=== PATIENT | male | born 1945 | race Caucasian/White ===

== ENCOUNTER → 2016-05-30 | Day surgery (SDC) | payer OTHER ==
[~2016-05-30] VITALS: Ht 188 cm; Wt 136.1 kg
[~2016-05-30] MED LIST: ALLOPURINOL300 MG PO; AMLODIPINE BESYL5 MG PO; ANALGESIC325 M1 PO; ASPIR 8181 M1 PO; ASPIRIN325 MG PO; ATORVASTATIN CA10 MG PO; AVELOX400 MG; AZITHROMYCIN250 MG; BEE WITH C1 EACH; CALCIUM ACETAT667 MG PO; CALCIUM ACETAT668 MG PO; CARVEDILOL3.125 MG PO; CHERATUSSIN AC473 ML; COLCHICINE0.6 MG PO; DILAUDID2 MG PO; DOXAZOSIN MESYLA2 MG; DOXAZOSIN MESYLA2 MG PO; ENDOCET 10-3251 EACH; ENDOCET 5-3251 EACH PO; FISH OIL SOFTG1 EACH PO; GABAPENTIN100 MG PO; GABAPENTIN300 MG PO; HUMULIN 70100 UNIT/2 SC; HUMULIN 70100 UNIT/2 SQ; LOVASTATIN40 MG PO; METOPROLOL SUCC25 MG PO; NEURONTIN100 MG PO; NITROSTAT0.4 MG SL; NOVOLIN 70100 UNIT/2 SQ; NOVOLOG MI100 UNIT/M SQ; NOVOLOG100 UNIT/2; OMEPRAZOLE20 M1 PO; OXYCODONE-APAP1 EACH; PERCOCET 10/1 TABLET PO; PRILOSEC20 MG PO; RENVELA0.8 GM; RENVELA800 MG PO; SENNA-TIME S T1 EACH PO; VITAMIN D2000 UNIT; VITAMIN D2000 UNIT PO; ZEMPLAR1 MCG PO
[2016-05-30 12:38] LABS: POINT-OF-CARE METER ID UU13113696
[2016-05-30 13:47] LABS: METH RESISTANT S AUREUS PCR NEGATIVE (NEGATIVE)
[2016-05-30 13:51] LABS: PROBE CHECK PASS; SPECIMEN PROCESSING CONTROL PASS
== END | disposition home or self-care (01) ==
LOC: CATH 11:43
PROVIDERS: Surgery
DX: T82.858A Stenosis of other vascular prosthetic devices, implants and grafts, initial encounter (principal); Y83.2 Surgical operation with anastomosis, bypass or graft as the cause of abnormal reaction of the patient, or of later complication, without mention of misadventure at the time of the procedure; Z99.2 Dependence on renal dialysis; I12.0 Hypertensive chronic kidney disease with stage 5 chronic kidney disease or end stage renal disease; N18.6 End stage renal disease; E78.5 Hyperlipidemia, unspecified
CPT/HCPCS: 82948; 87641; C1725; C1769; C1894; J1644; J2250; J3010

== ENCOUNTER 2016-06-12 23:54 | Inpatient (IN) | payer OTHER ==
[~2016-06-12] VITALS: Ht 188 cm; Wt 130.0 kg
[2016-06-13 00:27] LABS: HEMATOCRIT 34.2 % (38.0-50.0); MCH 31.8 PG (29.0-34.0); MCHC 34.5 G/DL (30.0-36.0); MCV 92.2 FL (86-99); MEAN PLAT.VOLUME 8.9 uM^3 (9.0-12.4); PLATELET COUNT 119 K/uL (156-360); RBC DIS.WIDTH-CV 13.7 % (11.8-14.6); RBC DIS.WIDTH-SD 44.7 % (39-53); RED BLOOD COUNT 3.71 M/uL (4.00-5.50); WHITE BLOOD COUNT 8.8 K/uL (4.1-10.2)
[2016-06-13 00:40] LABS: CHLORIDE 94 mEq/L (99-109); POTASSIUM 3.5 mEq/L (3.7-5.4); SODIUM 139 mEq/L (136-147)
[2016-06-13 00:42] LABS: GLUCOSE 173 mg/dL (70-99)
[2016-06-13 00:43] LABS: ANION GAP 13 MEQ/L (2-14)
[2016-06-13 00:45] LABS: GFR ESTIMATE (CALCULATED) 6 mL/min/
[2016-06-13 00:46] LABS: UREA NITROGEN (BUN) 50 mg/dL (9-23)
[2016-06-13 01:25] LABS: INTER. NORMALIZED RATIO 1.1; PROTHROMBIN TIME 10.7 (9.2-11.2); PTT 30.6 (25-32); TOTAL BILIRUBIN 1.2 mg/dL (0.0-1.0)
[2016-06-13 01:26] LABS: ALKALINE PHOSPHATASE 56 IU/L (3-129)
[2016-06-13 01:29] LABS: DIRECT BILIRUBIN 0.4 mg/dL (0.0-0.3)
[2016-06-13 01:30] LABS: LIPASE 19 U/L (1.0-51.0)
[2016-06-13 01:33] LABS: TROP-I INTERPRETATION NEGATIVE; TROPONIN-I 0.05 ng/mL (0.0-0.30)
[2016-06-13] MEDS ORDERED: NOVOLOG MI100 UNIT/4 SC (01:56)
[2016-06-13 05:30] VITALS: BP 158/64
[2016-06-13 07:16] LABS: POINT-OF-CARE METER ID UU14188577
[2016-06-13 07:17] LABS: HEMATOCRIT 33.2 % (38.0-50.0); MCH 31.8 PG (29.0-34.0); MCHC 34.3 G/DL (30.0-36.0); MCV 92.7 FL (86-99); MEAN PLAT.VOLUME 9.5 uM^3 (9.0-12.4); PLATELET COUNT 90 K/uL (156-360); RBC DIS.WIDTH-CV 13.8 % (11.8-14.6); RBC DIS.WIDTH-SD 46.4 % (39-53); RED BLOOD COUNT 3.58 M/uL (4.00-5.50)
[2016-06-13 07:46] LABS: ALKALINE PHOSPHATASE 42 IU/L (3-129); ANION GAP 10 MEQ/L (2-14); CHLORIDE 94 MEQ/L (99-109); GFR ESTIMATE (CALCULATED) 6 mL/min/; GLUCOSE 185 mg/dL (70-99); POTASSIUM 3.4 MEQ/L (3.7-5.4); SAMPLE HEMOLYSIS CHECK 0; SAMPLE ICTERIC CHECK 0; SAMPLE LIPEMIA CHECK 0; SODIUM 138 MEQ/L (136-147); TOTAL BILIRUBIN 0.9 MG/DL (0.0-1.0); UREA NITROGEN (BUN) 49 mg/dL (9-23)
[2016-06-13 08:23] VITALS: BP 143/67
[2016-06-13 08:32] LABS: MAGNESIUM 2.1 mg/dl (1.3-2.7)
[2016-06-13 16:10] LABS: POINT-OF-CARE METER ID UU14149397
[2016-06-13 16:26] LABS: INTERNAL CONTROL VALID? YES
[2016-06-13 16:30] VITALS: BP 148/66
[2016-06-13 17:02] LABS: C DIFF TOXIN NEGATIVE (NEGATIVE)
[2016-06-13 17:04] LABS: PROBE CHECK PASS; SPECIMEN PROCESSING CONTROL PASS
[2016-06-14 00:38] VITALS: BP 138/74
[2016-06-14 04:00] VITALS: BP 147/65
[2016-06-14 05:49] LABS: HEMATOCRIT 32.1 % (38.0-50.0); MCHC 34.3 G/DL (30.0-36.0); MCV 93.3 FL (86-99); MEAN PLAT.VOLUME 9.7 uM^3 (9.0-12.4); PLATELET COUNT 99 K/uL (156-360); RBC DIS.WIDTH-CV 13.8 % (11.8-14.6); RBC DIS.WIDTH-SD 47.3 % (39-53); RED BLOOD COUNT 3.44 M/uL (4.00-5.50); WHITE BLOOD COUNT 5.9 K/uL (4.1-10.2)
[2016-06-14 06:15] LABS: ANION GAP 11 MEQ/L (2-14); CHLORIDE 95 MEQ/L (99-109); GLUCOSE 277 mg/dL (70-99); SAMPLE HEMOLYSIS CHECK 0; SAMPLE ICTERIC CHECK 0; SAMPLE LIPEMIA CHECK 0; SODIUM 137 MEQ/L (136-147); UREA NITROGEN (BUN) 30 mg/dL (9-23)
[2016-06-14 06:26] LABS: GFR ESTIMATE (CALCULATED) 9 mL/min/; POTASSIUM 4.1 MEQ/L (3.7-5.4)
[2016-06-14 06:30] LABS: POINT-OF-CARE METER ID UU14188577
[2016-06-14 07:41] VITALS: BP 151/79
[2016-06-14] MEDS ORDERED: FLAGYL500 MG PO (09:28)
[2016-06-14] MEDS ORDERED: CIPRO500 MG PO (09:28)
[2016-06-15 10:44] LABS: HBSG INDEX 0.14
== END 2016-06-14 11:36 | disposition home or self-care (01) | DRG 377 ==
LOC: EME 23:54 → EDOF 06-13 02:16 → 3EAST 06-13 04:28
PROVIDERS: Emergency Medicine; Internal Medicine; Nurse Practitioner Adult Health
PROC: 5A1D00Z (ICD-10-PCS; principal; 2016-06-13)
DX: K57.33 Diverticulitis of large intestine without perforation or abscess with bleeding (principal); K52.9 Noninfective gastroenteritis and colitis, unspecified; I12.0 Hypertensive chronic kidney disease with stage 5 chronic kidney disease or end stage renal disease; E11.22 Type 2 diabetes mellitus with diabetic chronic kidney disease; N18.6 End stage renal disease; Z99.2 Dependence on renal dialysis; N25.81 Secondary hyperparathyroidism of renal origin; J90 Pleural effusion, not elsewhere classified; Z99.81 Dependence on supplemental oxygen; J44.9 Chronic obstructive pulmonary disease, unspecified; E87.70 Fluid overload, unspecified; E87.6 Hypokalemia; L89.320 Pressure ulcer of left buttock, unstageable; S81.801A Unspecified open wound, right lower leg, initial encounter; W01.118A Fall on same level from slipping, tripping and stumbling with subsequent striking against other sharp object, initial encounter; Y92.019 Unspecified place in single-family (private) house as the place of occurrence of the external cause; I73.9 Peripheral vascular disease, unspecified; Z91.81 History of falling; Z95.1 Presence of aortocoronary bypass graft; Z95.5 Presence of coronary angioplasty implant and graft; Z79.4 Long term (current) use of insulin; M19.90 Unspecified osteoarthritis, unspecified site; E66.01 Morbid (severe) obesity due to excess calories; R26.2 Difficulty in walking, not elsewhere classified; I87.8 Other specified disorders of veins; Z87.891 Personal history of nicotine dependence; K21.9 Gastro-esophageal reflux disease without esophagitis; Z68.36 Body mass index [BMI] 36.0-36.9, adult; D63.1 Anemia in chronic kidney disease; D50.9 Iron deficiency anemia, unspecified; I87.2 Venous insufficiency (chronic) (peripheral); Z96.653 Presence of artificial knee joint, bilateral; I25.10 Atherosclerotic heart disease of native coronary artery without angina pectoris
CPT/HCPCS: 71010; 74176; 80048; 80053; 80076; 82948; 83630; 83690; 83735; 84484; 85027; 85610; 85730; 86850; 86900; 86901; 87177; 87340; 87493; 87506; 93005; 94799; 99281; 99285; J0295; J0744; J1270; J1644; J1815; J7050; S0030

== ENCOUNTER 2016-09-14 22:12 | Inpatient (IN) | payer OTHER ==
[~2016-09-14] VITALS: Ht 188 cm; Wt 147.8 kg
[~2016-09-14 22:12] MED LIST changes: +CIPRO500 MG PO; +FLAGYL500 MG PO; +NOVOLOG MI100 UNIT/4 SC
[2016-09-14 23:46] LABS: HEMATOCRIT 42.3 % (38.0-50.0); MCH 30.9 PG (29.0-34.0); MCHC 31.4 G/DL (30.0-36.0); MCV 98.4 FL (86-99); MEAN PLAT.VOLUME 9.1 uM^3 (9.0-12.4); PLATELET COUNT 83 K/uL (156-360); RBC DIS.WIDTH-CV 13.2 % (11.8-14.6); RBC DIS.WIDTH-SD 46.5 % (39-53); WHITE BLOOD COUNT 7.2 K/uL (4.1-10.2)
[2016-09-14 23:55] LABS: CHLORIDE 95 mEq/L (99-109); POTASSIUM 5.7 mEq/L (3.7-5.4); PROTHROMBIN TIME 10.3 (9.2-11.2); PTT 28.1 (25-32); SODIUM 137 mEq/L (136-147)
[2016-09-14 23:57] LABS: GLUCOSE 289 mg/dL (70-99)
[2016-09-14 23:58] LABS: ANION GAP 12 MEQ/L (2-14)
[2016-09-14 23:59] LABS: TOTAL BILIRUBIN 0.8 mg/dL (0.0-1.0)
[2016-09-15 00:01] LABS: ALKALINE PHOSPHATASE 58 IU/L (3-129); GFR ESTIMATE (CALCULATED) 6 mL/min/
[2016-09-15 00:02] LABS: UREA NITROGEN (BUN) 48 mg/dL (9-23)
[2016-09-15 00:06] LABS: TROP-I INTERPRETATION NEGATIVE; TROPONIN-I 0.03 ng/mL (0.0-0.30)
[2016-09-15 04:45] VITALS: BP 163/73
[2016-09-15 04:58] VITALS: BP 163/73
[2016-09-15 07:13] VITALS: BP 140/76
[2016-09-15 11:22] VITALS: BP 140/63
[2016-09-15 11:39] LABS: POINT-OF-CARE METER ID UU14149397
[2016-09-15 12:34] LABS: EOSINOPHIL (%) 1.8 % (0-5); EOSINOPHIL COUNT 0.1 K/uL (0-0.3); HEMATOCRIT 37.4 % (38.0-50.0); IMMATURE GRANULOCYTE (%) 0.6 % (0.0-0.7); INSTRUMENT ABS NEUTROPHIL CT 5.7 K/uL; LYMPHOCYTE COUNT 0.6 K/uL (1.0-2.8); MCH 32.1 PG (29.0-34.0); MCHC 32.6 G/DL (30.0-36.0); MCV 98.4 FL (86-99); MEAN PLAT.VOLUME 9.4 uM^3 (9.0-12.4); MONOCYTE (%) 5.4 % (3-12); MONOCYTE COUNT 0.4 K/uL (0-0.8); NEUTROPHIL (%) 82.6 % (45-76); NEUTROPHIL COUNT 5.7 K/uL (1.8-6.4); PLATELET COUNT 68 K/uL (156-360); RBC DIS.WIDTH-CV 13.2 % (11.8-14.6); RBC DIS.WIDTH-SD 47.4 % (39-53); WHITE BLOOD COUNT 6.9 K/uL (4.1-10.2)
[2016-09-15 13:23] LABS: ANION GAP 9 MEQ/L (2-14); CHLORIDE 93 MEQ/L (99-109); GFR ESTIMATE (CALCULATED) 6 mL/min/; GLUCOSE 278 mg/dL (70-99); SAMPLE HEMOLYSIS CHECK 0; SAMPLE ICTERIC CHECK 0; SAMPLE LIPEMIA CHECK 0; SODIUM 134 MEQ/L (136-147); UREA NITROGEN (BUN) 53 mg/dL (9-23)
[2016-09-15] MEDS ORDERED: STOOL SOFTENER240 MG PO (18:40)
[2016-09-15 20:06] VITALS: BP 140/65
[2016-09-15 22:36] LABS: POINT-OF-CARE METER ID UU14149397
[2016-09-16 00:31] VITALS: BP 148/64
[2016-09-16 03:39] VITALS: BP 135/63
[2016-09-16 06:42] LABS: POINT-OF-CARE METER ID UU14149397
[2016-09-16 06:42] LABS: HEMATOCRIT 36.1 % (38.0-50.0); MCH 31.8 PG (29.0-34.0); MCHC 32.4 G/DL (30.0-36.0); MCV 98.1 FL (86-99); MEAN PLAT.VOLUME 9.8 uM^3 (9.0-12.4); PLATELET COUNT 73 K/uL (156-360); RBC DIS.WIDTH-CV 12.9 % (11.8-14.6); RBC DIS.WIDTH-SD 46.5 % (39-53); RED BLOOD COUNT 3.68 M/uL (4.00-5.50)
[2016-09-16 07:17] LABS: INTERNAL CONTROL VALID? YES
[2016-09-16 07:52] LABS: ANION GAP 8 MEQ/L (2-14); CHLORIDE 94 MEQ/L (99-109); GFR ESTIMATE (CALCULATED) 8 mL/min/; GLUCOSE 237 mg/dL (70-99); POTASSIUM 4.8 MEQ/L (3.7-5.4); SAMPLE HEMOLYSIS CHECK 0; SAMPLE ICTERIC CHECK 0; SAMPLE LIPEMIA CHECK 0; SODIUM 137 MEQ/L (136-147); UREA NITROGEN (BUN) 29 mg/dL (9-23)
[2016-09-16 08:15] VITALS: BP 147/67
[2016-09-16 11:47] LABS: AHBS INDEX 0.43; HEPATITIS B SURFACE ANTIBODY Nonreactive
[2016-09-16 11:59] VITALS: BP 139/75
[2016-09-16 12:05] LABS: POINT-OF-CARE METER ID UU14149397
[2016-09-16 16:08] VITALS: BP 165/77
[2016-09-16 19:41] VITALS: BP 195/81
[2016-09-16 21:23] LABS: POINT-OF-CARE METER ID UU14149397
[2016-09-17] VITALS: BP 170/77
[2016-09-17 06:25] LABS: POINT-OF-CARE METER ID UU14188577
[2016-09-17 06:44] LABS: HEMATOCRIT 36.5 % (38.0-50.0); MCH 31.8 PG (29.0-34.0); MCHC 32.9 G/DL (30.0-36.0); MCV 96.8 FL (86-99); PLATELET COUNT 84 K/uL (156-360); RBC DIS.WIDTH-CV 13.2 % (11.8-14.6); RBC DIS.WIDTH-SD 46.2 % (39-53); RED BLOOD COUNT 3.77 M/uL (4.00-5.50); WHITE BLOOD COUNT 5.5 K/uL (4.1-10.2)
[2016-09-17 07:18] LABS: ANION GAP 10 MEQ/L (2-14); CHLORIDE 92 MEQ/L (99-109); GLUCOSE 258 mg/dL (70-99); POTASSIUM 5.5 MEQ/L (3.7-5.4); SAMPLE HEMOLYSIS CHECK 0; SAMPLE ICTERIC CHECK 0; SAMPLE LIPEMIA CHECK 0; SODIUM 137 MEQ/L (136-147); UREA NITROGEN (BUN) 38 mg/dL (9-23)
[2016-09-17 07:19] LABS: GFR ESTIMATE (CALCULATED) 6 mL/min/
[2016-09-17 08:00] VITALS: BP 163/75
[2016-09-17 11:55] LABS: POINT-OF-CARE METER ID UU14149397
[2016-09-17 12:08] VITALS: BP 155/71
[2016-09-17 13:28] LABS: Estimated Average Glucose 192 mg/dL (70-123); HEMOGLOBIN A1c (GLYCOHEMOGLOB) 8.3 % HGB (Below 5.7)
[2016-09-17] MEDS ORDERED: DUONEB 2.5-0.5 M3 ML AEROSOL (13:55)
[2016-09-17 16:35] VITALS: BP 159/70
[2016-09-17 18:04] LABS: POINT-OF-CARE METER ID UU14149397
[2016-09-17 18:33] LABS: ANION GAP 7 MEQ/L (2-14); CHLORIDE 92 MEQ/L (99-109); SAMPLE HEMOLYSIS CHECK 0; SAMPLE ICTERIC CHECK 0; SAMPLE LIPEMIA CHECK 0; SODIUM 135 MEQ/L (136-147)
[2016-09-17 18:34] LABS: POTASSIUM 4.2 MEQ/L (3.7-5.4)
[2016-09-17 19:24] LABS: GFR ESTIMATE (CALCULATED) 13 mL/min/; GLUCOSE 216 mg/dL (70-99)
[2016-09-17 19:28] LABS: UREA NITROGEN (BUN) 18 mg/dL (9-23)
== END 2016-09-17 19:42 | disposition home health service (06) | DRG 193 ==
LOC: EME → EDBD 22:12 → EDOF 09-15 03:54 → 3EAST 09-15 03:54
PROVIDERS: Emergency Medicine; Internal Medicine; Internal Medicine Nephrology; Physician Assistant
PROC: 5A1D60Z (ICD-10-PCS; principal; 2016-09-15)
DX: J18.9 Pneumonia, unspecified organism (principal); I12.0 Hypertensive chronic kidney disease with stage 5 chronic kidney disease or end stage renal disease; E87.70 Fluid overload, unspecified; J81.1 Chronic pulmonary edema; N18.6 End stage renal disease; D63.1 Anemia in chronic kidney disease; R06.00 Dyspnea, unspecified; J44.9 Chronic obstructive pulmonary disease, unspecified; E78.5 Hyperlipidemia, unspecified; K21.9 Gastro-esophageal reflux disease without esophagitis; I25.10 Atherosclerotic heart disease of native coronary artery without angina pectoris; K57.30 Diverticulosis of large intestine without perforation or abscess without bleeding; F32.9 Major depressive disorder, single episode, unspecified; F41.9 Anxiety disorder, unspecified; I73.9 Peripheral vascular disease, unspecified; I87.8 Other specified disorders of veins; M19.90 Unspecified osteoarthritis, unspecified site; E83.39 Other disorders of phosphorus metabolism; E66.01 Morbid (severe) obesity due to excess calories; Z68.41 Body mass index [BMI] 40.0-44.9, adult; Z99.2 Dependence on renal dialysis; Z79.4 Long term (current) use of insulin; Z95.1 Presence of aortocoronary bypass graft; Z99.81 Dependence on supplemental oxygen; Z90.49 Acquired absence of other specified parts of digestive tract; Z87.891 Personal history of nicotine dependence; Z86.73 Personal history of transient ischemic attack (TIA), and cerebral infarction without residual deficits; Z96.653 Presence of artificial knee joint, bilateral; Z90.5 Acquired absence of kidney
CPT/HCPCS: 71101; 71250; 80048; 80048 91; 80053; 80069; 81003; 82948; 83036; 83605; 84484; 85025; 85027; 85610; 85730; 86706; 87070; 87205; 87340; 87449; 93005; 94010; 94640; 94640 76; 94799; 99202; 99281; 99285; J0456; J0696; J1644; J1815; J7050; J7644

== ENCOUNTER 2016-12-25 14:32 | Emergency (ER) | payer OTHER ==
[~2016-12-25] VITALS: Ht 188 cm; Wt 142.7 kg
[~2016-12-25 14:32] MED LIST changes: +DUONEB 2.5-0.5 M3 ML AEROSOL; +STOOL SOFTENER240 MG PO
[2016-12-25 15:59] LABS: HEMATOCRIT 37.1 % (38.0-50.0); MCH 32.3 PG (29.0-34.0); MCHC 33.4 G/DL (30.0-36.0); MCV 96.6 FL (86-99); MEAN PLAT.VOLUME 9.2 uM^3 (9.0-12.4); PLATELET COUNT 79 K/uL (156-360); RBC DIS.WIDTH-SD 46.8 % (39-53); RED BLOOD COUNT 3.84 M/uL (4.00-5.50); WHITE BLOOD COUNT 8.6 K/uL (4.1-10.2)
[2016-12-25 16:09] LABS: CHLORIDE 92 mEq/L (99-109); POTASSIUM 4.4 mEq/L (3.7-5.4); SODIUM 138 mEq/L (136-147)
[2016-12-25 16:12] LABS: GLUCOSE 143 mg/dL (70-99)
[2016-12-25 16:13] LABS: ANION GAP 13 MEQ/L (2-14)
[2016-12-25 16:14] LABS: TOTAL BILIRUBIN 0.8 mg/dL (0.0-1.0)
[2016-12-25 16:15] LABS: ALKALINE PHOSPHATASE 56 IU/L (3-129)
[2016-12-25 16:16] LABS: GFR ESTIMATE (CALCULATED) 6 mL/min/
[2016-12-25 16:17] LABS: UREA NITROGEN (BUN) 44 mg/dL (9-23)
[2016-12-25] MEDS ORDERED: CIPRO500 MG PO (19:42)
[2016-12-25] MEDS ORDERED: FLAGYL500 MG PO (19:42)
[2016-12-25 20:02] VITALS: BP 121/69
== END 2016-12-25 20:04 | disposition home or self-care (01) ==
LOC: EME 14:32
DX: K52.9 Noninfective gastroenteritis and colitis, unspecified (principal); I12.0 Hypertensive chronic kidney disease with stage 5 chronic kidney disease or end stage renal disease; E11.22 Type 2 diabetes mellitus with diabetic chronic kidney disease; N18.6 End stage renal disease; Z99.2 Dependence on renal dialysis; Z79.4 Long term (current) use of insulin; K57.30 Diverticulosis of large intestine without perforation or abscess without bleeding; Z90.5 Acquired absence of kidney; Z90.49 Acquired absence of other specified parts of digestive tract; E78.5 Hyperlipidemia, unspecified; Z95.1 Presence of aortocoronary bypass graft; Z95.5 Presence of coronary angioplasty implant and graft; Z87.442 Personal history of urinary calculi; Z79.82 Long term (current) use of aspirin; Z85.828 Personal history of other malignant neoplasm of skin; Z99.81 Dependence on supplemental oxygen; Z87.891 Personal history of nicotine dependence
CPT/HCPCS: 74176; 80053; 81003; 83605; 85027; 99281; 99285

== ENCOUNTER 2016-12-30 03:56 | Inpatient (IN) | payer OTHER ==
[~2016-12-30] VITALS: Ht 188 cm; Wt 144.1 kg
[2016-12-30 04:44] LABS: EOSINOPHIL (%) 6.7 % (0-5); EOSINOPHIL COUNT 0.5 K/uL (0-0.3); HEMATOCRIT 33.9 % (38.0-50.0); IMMATURE GRANULOCYTE (%) 0.4 % (0.0-0.7); INSTRUMENT ABS NEUTROPHIL CT 4.9 K/uL; LYMPHOCYTE COUNT 0.8 K/uL (1.0-2.8); MCH 32.2 PG (29.0-34.0); MCV 97.4 FL (86-99); MEAN PLAT.VOLUME 8.9 uM^3 (9.0-12.4); MONOCYTE (%) 8.9 % (3-12); MONOCYTE COUNT 0.6 K/uL (0-0.8); NEUTROPHIL (%) 72.2 % (45-76); NEUTROPHIL COUNT 4.9 K/uL (1.8-6.4); PLATELET COUNT 93 K/uL (156-360); RBC DIS.WIDTH-SD 46.4 % (39-53); RED BLOOD COUNT 3.48 M/uL (4.00-5.50); WHITE BLOOD COUNT 6.7 K/uL (4.1-10.2)
[2016-12-30 04:55] LABS: CHLORIDE 88 mEq/L (99-109); SODIUM 136 mEq/L (136-147)
[2016-12-30 04:58] LABS: ANION GAP 11 MEQ/L (2-14); POTASSIUM 3.5 mEq/L (3.7-5.4)
[2016-12-30 04:59] LABS: TOTAL BILIRUBIN 0.4 mg/dL (0.0-1.0)
[2016-12-30 05:00] LABS: ALKALINE PHOSPHATASE 52 IU/L (3-129)
[2016-12-30 05:01] LABS: GFR ESTIMATE (CALCULATED) 9 mL/min/
[2016-12-30 05:02] LABS: UREA NITROGEN (BUN) 17 mg/dL (9-23)
[2016-12-30 05:04] LABS: GLUCOSE 453 mg/dL (70-99); LIPASE 81 U/L (1.0-51.0)
[2016-12-30 07:58] LABS: POINT-OF-CARE METER ID UU13113747
[2016-12-30 10:45] VITALS: BP 174/77
[2016-12-30 12:44] LABS: POINT-OF-CARE METER ID UU14162508
[2016-12-30 15:34] VITALS: BP 141/61
[2016-12-30 16:37] LABS: POINT-OF-CARE METER ID UU14162508; POINT-OF-CARE USER ID PUTDRM
[2016-12-30 20:57] VITALS: BP 141/63
[2016-12-30 21:47] LABS: POINT-OF-CARE METER ID UU14208750
[2016-12-31 01:23] VITALS: BP 101/51
[2016-12-31 02:03] LABS: C DIFF TOXIN NEGATIVE (NEGATIVE)
[2016-12-31 02:04] LABS: PROBE CHECK PASS; SPECIMEN PROCESSING CONTROL PASS
[2016-12-31 04:01] VITALS: BP 103/52
[2016-12-31 06:21] LABS: POINT-OF-CARE METER ID UU14208750
[2016-12-31 06:59] LABS: HEMATOCRIT 34.1 % (38.0-50.0); MCH 32.3 PG (29.0-34.0); MCHC 33.1 G/DL (30.0-36.0); MCV 97.4 FL (86-99); MEAN PLAT.VOLUME 8.7 uM^3 (9.0-12.4); PLATELET COUNT 94 K/uL (156-360); RBC DIS.WIDTH-CV 13.1 % (11.8-14.6); RBC DIS.WIDTH-SD 46.8 % (39-53); WHITE BLOOD COUNT 8.6 K/uL (4.1-10.2)
[2016-12-31 07:21] LABS: ANION GAP 10 MEQ/L (2-14); CHLORIDE 91 MEQ/L (99-109); GFR ESTIMATE (CALCULATED) 8 mL/min/; POTASSIUM 3.4 MEQ/L (3.7-5.4); SAMPLE HEMOLYSIS CHECK 0; SAMPLE ICTERIC CHECK 0; SAMPLE LIPEMIA CHECK 0; SODIUM 136 MEQ/L (136-147); UREA NITROGEN (BUN) 18 mg/dL (9-23)
[2016-12-31 07:23] LABS: GLUCOSE 156 mg/dL (70-99)
[2016-12-31 11:53] VITALS: BP 108/64
[2016-12-31 13:33] LABS: POINT-OF-CARE METER ID UU14162508
[2016-12-31 15:15] VITALS: BP 112/70
[2016-12-31 17:36] LABS: POINT-OF-CARE METER ID UU14208750
[2016-12-31 19:56] VITALS: BP 123/65
[2016-12-31 22:01] LABS: POINT-OF-CARE METER ID UU14162508
[2016-12-31 22:30] VITALS: BP 119/59
[2017-01-01 00:44] VITALS: BP 135/58
[2017-01-01 04:28] VITALS: BP 132/53
[2017-01-01 06:12] LABS: POINT-OF-CARE METER ID UU14208750
[2017-01-01 07:05] VITALS: BP 125/83
[2017-01-01] MEDS ORDERED: FLAGYL500 MG PO (09:40)
[2017-01-01] MEDS ORDERED: CIPRO500 MG PO (09:40)
== END 2017-01-01 11:25 | disposition home health service (06) | DRG 391 ==
LOC: EME 03:56 → 2EASTP 08:16 → EDOF 08:16 → ENRESERV 08:23 → 2EASTP 10:28
PROVIDERS: Emergency Medicine; Internal Medicine
PROC: 5A1D00Z (ICD-10-PCS; principal; 2016-12-31)
DX: K57.32 Diverticulitis of large intestine without perforation or abscess without bleeding (principal); E86.0 Dehydration; I12.0 Hypertensive chronic kidney disease with stage 5 chronic kidney disease or end stage renal disease; N18.6 End stage renal disease; J44.9 Chronic obstructive pulmonary disease, unspecified; E11.22 Type 2 diabetes mellitus with diabetic chronic kidney disease; N25.81 Secondary hyperparathyroidism of renal origin; E11.65 Type 2 diabetes mellitus with hyperglycemia; E11.40 Type 2 diabetes mellitus with diabetic neuropathy, unspecified; E11.51 Type 2 diabetes mellitus with diabetic peripheral angiopathy without gangrene; D69.6 Thrombocytopenia, unspecified; Z99.81 Dependence on supplemental oxygen; E66.01 Morbid (severe) obesity due to excess calories; Z68.41 Body mass index [BMI] 40.0-44.9, adult; D63.1 Anemia in chronic kidney disease; E78.5 Hyperlipidemia, unspecified; I25.10 Atherosclerotic heart disease of native coronary artery without angina pectoris; K21.9 Gastro-esophageal reflux disease without esophagitis; I87.8 Other specified disorders of veins; M19.90 Unspecified osteoarthritis, unspecified site; Z96.653 Presence of artificial knee joint, bilateral; Z99.2 Dependence on renal dialysis; I25.2 Old myocardial infarction; Z95.1 Presence of aortocoronary bypass graft; Z95.5 Presence of coronary angioplasty implant and graft; Z87.891 Personal history of nicotine dependence; Z90.5 Acquired absence of kidney; Z87.442 Personal history of urinary calculi; Z79.4 Long term (current) use of insulin; Z79.899 Other long term (current) drug therapy; Z80.1 Family history of malignant neoplasm of trachea, bronchus and lung
CPT/HCPCS: 74177; 80048; 80053; 81003; 82948; 83690; 85025; 85027; 87040; 87493; 87506; 94640; 94799; 99202; 99281; 99284; J1270; J1644; J1756; J1815; J2270; J2405; J2543; J3010; J3480; J7030; J7050; S0028; S0030

== ENCOUNTER 2017-01-23 10:00 | Inpatient (IN) | payer OTHER ==
[~2017-01-23] VITALS: Ht 185.4 cm; Wt 137.6 kg
[2017-01-23] VITALS (13 sets, daily range): BP systolic 108–137; BP diastolic 48–72
[~2017-01-23 10:00] MED LIST changes: +NOVOLOG MI100 UNIT/2 SC; -NOVOLOG MI100 UNIT/4 SC
[2017-01-23 10:51] LABS: HEMATOCRIT 34.8 % (38.0-50.0); MCHC 32.5 G/DL (30.0-36.0); MCV 95.6 FL (86-99); MEAN PLAT.VOLUME 9.1 uM^3 (9.0-12.4); PLATELET COUNT 86 K/uL (156-360); RBC DIS.WIDTH-CV 12.6 % (11.8-14.6); RBC DIS.WIDTH-SD 43.9 % (39-53); RED BLOOD COUNT 3.64 M/uL (4.00-5.50)
[2017-01-23 11:00] LABS: CHLORIDE 91 mEq/L (99-109); POTASSIUM 3.7 mEq/L (3.7-5.4); SODIUM 139 mEq/L (136-147)
[2017-01-23 11:02] LABS: GLUCOSE 200 mg/dL (70-99)
[2017-01-23 11:03] LABS: ANION GAP 12 MEQ/L (2-14)
[2017-01-23 11:04] LABS: TOTAL BILIRUBIN 0.8 mg/dL (0.0-1.0)
[2017-01-23 11:06] LABS: ALKALINE PHOSPHATASE 59 IU/L (3-129); GFR ESTIMATE (CALCULATED) 14 mL/min/
[2017-01-23 11:07] LABS: UREA NITROGEN (BUN) 13 mg/dL (9-23)
[2017-01-23 11:11] LABS: TROP-I INTERPRETATION NEGATIVE; TROPONIN-I 0.05 ng/mL (0.0-0.30)
[2017-01-23] MEDS ORDERED: TYLENOL EXTRA500 MG PO (13:37)
[2017-01-23] MEDS ORDERED: RENVELA800 MG PO (13:37)
[2017-01-23] MEDS ORDERED: CALAMINE LOTIO120 ML TP (13:38)
[2017-01-23] MEDS ORDERED: AQUAPHILIC454 GM TP (13:39)
[2017-01-23] MEDS ORDERED: PREPARATION H1 EAC4 PR (13:39)
[2017-01-23] MEDS ORDERED: PREPARATION H O28 GM PR (13:40)
[2017-01-23 14:47] LABS: PROTHROMBIN TIME 11.4 SEC (10.2-12.9)
[2017-01-23 14:49] LABS: PTT 30.5 SEC (25-37)
[2017-01-23 19:25] LABS: HEMATOCRIT 26.2 % (38.0-50.0)
[2017-01-23 21:20] LABS: POINT-OF-CARE METER ID UU13113781
[2017-01-23 23:06] LABS: METH RESISTANT S AUREUS PCR NEGATIVE (NEGATIVE); PROBE CHECK PASS; SPECIMEN PROCESSING CONTROL PASS
[2017-01-24] VITALS (21 sets, daily range): BP systolic 106–167; BP diastolic 44–85
[2017-01-24 02:02] LABS: HEMATOCRIT 26.7 % (38.0-50.0)
[2017-01-24 08:46] LABS: EOSINOPHIL COUNT 0.2 K/uL (0-0.3); HEMATOCRIT 31.6 % (38.0-50.0); IMMATURE GRANULOCYTE (%) 0.8 % (0.0-0.7); IMMATURE GRANULOCYTE COUNT 0.1 K/uL; INSTRUMENT ABS NEUTROPHIL CT 4.5 K/uL; LYMPHOCYTE COUNT 1.1 K/uL (1.0-2.8); MCH 31.3 PG (29.0-34.0); MCHC 33.5 G/DL (30.0-36.0); MCV 93.2 FL (86-99); MEAN PLAT.VOLUME 9.3 uM^3 (9.0-12.4); MONOCYTE (%) 7.3 % (3-12); MONOCYTE COUNT 0.5 K/uL (0-0.8); NEUTROPHIL (%) 71.8 % (45-76); NEUTROPHIL COUNT 4.5 K/uL (1.8-6.4); PLATELET COUNT 95 K/uL (156-360); RBC DIS.WIDTH-CV 13.6 % (11.8-14.6); RED BLOOD COUNT 3.39 M/uL (4.00-5.50); WHITE BLOOD COUNT 6.3 K/uL (4.1-10.2)
[2017-01-24 08:51] LABS: INTER. NORMALIZED RATIO 1.1; PROTHROMBIN TIME 12.1 SEC (10.2-12.9)
[2017-01-24 09:14] LABS: ALKALINE PHOSPHATASE 49 IU/L (3-129); ANION GAP 12 MEQ/L (2-14); CHLORIDE 97 MEQ/L (99-109); GFR ESTIMATE (CALCULATED) 11 mL/min/; GLUCOSE 190 mg/dL (70-99); POTASSIUM 4.4 MEQ/L (3.7-5.4); SAMPLE HEMOLYSIS CHECK 0; SAMPLE ICTERIC CHECK 0; SAMPLE LIPEMIA CHECK 0; SODIUM 143 MEQ/L (136-147); TOTAL BILIRUBIN 1.7 MG/DL (0.0-1.0)
[2017-01-24 09:15] LABS: UREA NITROGEN (BUN) 21 mg/dL (9-23)
[2017-01-24 09:38] LABS: POINT-OF-CARE METER ID UU13113803
[2017-01-24 14:02] LABS: POINT-OF-CARE METER ID UU13113803
[2017-01-24 14:47] LABS: MCV 93.8 FL (86-99)
[2017-01-24 17:59] LABS: POINT-OF-CARE METER ID UU13113803
[2017-01-24 19:55] LABS: HEMATOCRIT 28.9 % (38.0-50.0); MCV 92.3 FL (86-99)
[2017-01-25] VITALS (8 sets, daily range): BP systolic 126–159; BP diastolic 60–84
[2017-01-25 05:33] LABS: EOSINOPHIL (%) 7.6 % (0-5); EOSINOPHIL COUNT 0.4 K/uL (0-0.3); HEMATOCRIT 28.3 % (38.0-50.0); IMMATURE GRANULOCYTE COUNT 0.1 K/uL; INSTRUMENT ABS NEUTROPHIL CT 3.8 K/uL; LYMPHOCYTE COUNT 1.1 K/uL (1.0-2.8); MCH 30.5 PG (29.0-34.0); MCHC 32.9 G/DL (30.0-36.0); MCV 92.8 FL (86-99); MEAN PLAT.VOLUME 9.3 uM^3 (9.0-12.4); MONOCYTE (%) 7.1 % (3-12); MONOCYTE COUNT 0.4 K/uL (0-0.8); NEUTROPHIL (%) 65.4 % (45-76); NEUTROPHIL COUNT 3.8 K/uL (1.8-6.4); PLATELET COUNT 96 K/uL (156-360); RBC DIS.WIDTH-SD 47.3 % (39-53); RED BLOOD COUNT 3.05 M/uL (4.00-5.50); WHITE BLOOD COUNT 5.8 K/uL (4.1-10.2)
[2017-01-25 05:45] LABS: INTER. NORMALIZED RATIO 1.1; PROTHROMBIN TIME 11.9 SEC (10.2-12.9)
[2017-01-25 05:48] LABS: PTT 27.2 SEC (25-37)
[2017-01-25 06:01] LABS: ANION GAP 12 MEQ/L (2-14); CHLORIDE 96 MEQ/L (99-109); GFR ESTIMATE (CALCULATED) 9 mL/min/; GLUCOSE 177 mg/dL (70-99); POTASSIUM 3.6 MEQ/L (3.7-5.4); SAMPLE HEMOLYSIS CHECK 0; SAMPLE ICTERIC CHECK 0; SAMPLE LIPEMIA CHECK 0; SODIUM 140 MEQ/L (136-147); UREA NITROGEN (BUN) 28 mg/dL (9-23)
[2017-01-25 12:29] LABS: POINT-OF-CARE METER ID UU14162636
[2017-01-25 12:38] LABS: HEMATOCRIT 26.7 % (38.0-50.0); MCV 93.4 FL (86-99)
[2017-01-25 17:10] LABS: POINT-OF-CARE METER ID UU13113748
[2017-01-25 18:40] LABS: HEMATOCRIT 27.7 % (38.0-50.0); MCV 93.3 FL (86-99)
[2017-01-26] VITALS: BP 151/70
[2017-01-26 04:00] VITALS: BP 133/64
[2017-01-26 06:55] LABS: POINT-OF-CARE METER ID UU14314082; POINT-OF-CARE USER ID RADDRS44
[2017-01-26 07:00] VITALS: BP 133/64
[2017-01-26 08:54] LABS: EOSINOPHIL (%) 7.7 % (0-5); EOSINOPHIL COUNT 0.4 K/uL (0-0.3); HEMATOCRIT 26.6 % (38.0-50.0); IMMATURE GRANULOCYTE (%) 0.9 % (0.0-0.7); IMMATURE GRANULOCYTE COUNT 0.1 K/uL; INSTRUMENT ABS NEUTROPHIL CT 3.8 K/uL; LYMPHOCYTE COUNT 0.8 K/uL (1.0-2.8); MCH 30.7 PG (29.0-34.0); MCHC 33.1 G/DL (30.0-36.0); MCV 92.7 FL (86-99); MONOCYTE (%) 6.4 % (3-12); MONOCYTE COUNT 0.4 K/uL (0-0.8); NEUTROPHIL (%) 69.5 % (45-76); NEUTROPHIL COUNT 3.8 K/uL (1.8-6.4); PLATELET COUNT 91 K/uL (156-360); RBC DIS.WIDTH-CV 13.4 % (11.8-14.6); RBC DIS.WIDTH-SD 45.1 % (39-53); RED BLOOD COUNT 2.87 M/uL (4.00-5.50); WHITE BLOOD COUNT 5.5 K/uL (4.1-10.2)
[2017-01-26 09:12] LABS: ANION GAP 10 MEQ/L (2-14); CHLORIDE 97 MEQ/L (99-109); POTASSIUM 3.5 MEQ/L (3.7-5.4); SAMPLE HEMOLYSIS CHECK 0; SAMPLE ICTERIC CHECK 0; SAMPLE LIPEMIA CHECK 0; SODIUM 138 MEQ/L (136-147)
[2017-01-26 09:18] LABS: GFR ESTIMATE (CALCULATED) 8 mL/min/; UREA NITROGEN (BUN) 34 mg/dL (9-23)
[2017-01-26 09:19] LABS: GLUCOSE 280 mg/dL (70-99)
[2017-01-26 11:00] LABS: AHBS INDEX 4.12; HBSG INDEX 0.14; HEPATITIS B SURFACE ANTIBODY Nonreactive
[2017-01-26] MEDS ORDERED: PANTOPRAZOLE SO40 MG PO ×2 (12:55→15:50)
[2017-01-26 13:00] VITALS: BP 146/73
[2017-01-26 13:16] LABS: POINT-OF-CARE METER ID UU14314082
== END 2017-01-26 15:53 | disposition home health service (06) | DRG 377 ==
LOC: EME 10:00 → EDOF 13:00 → 4WEST 13:00 → CANRESERV 13:02 → ENRESERV 13:02 → 3EAST 14:24 → ENRESERV 14:54 → 3EAST 15:54 → 4EAST 18:03 → ENRESERV 19:09 → 4WEST 21:22 → ENRESERV 01-25 20:32 → 4WEST 01-26 15:53
PROVIDERS: Emergency Medicine; Internal Medicine; Internal Medicine Critical Care Medicine; Internal Medicine Nephrology; Specialist; Surgery
PROC: 30233N1 Transfusion of Nonautologous Red Blood Cells into Peripheral Vein, Percutaneous Approach (ICD-10-PCS; principal; 2017-01-23)
PROC: 30233R1 Transfusion of Nonautologous Platelets into Peripheral Vein, Percutaneous Approach (ICD-10-PCS; principal; 2017-01-23)
PROC: 5A1D70Z Performance of Urinary Filtration, Intermittent, Less than 6 Hours Per Day (ICD-10-PCS; 2017-01-26)
DX: K57.31 Diverticulosis of large intestine without perforation or abscess with bleeding (principal); D62 Acute posthemorrhagic anemia; I13.2 Hypertensive heart and chronic kidney disease with heart failure and with stage 5 chronic kidney disease, or end stage renal disease; N18.6 End stage renal disease; Z96.653 Presence of artificial knee joint, bilateral; Z99.2 Dependence on renal dialysis; D63.1 Anemia in chronic kidney disease; D69.6 Thrombocytopenia, unspecified; E10.22 Type 1 diabetes mellitus with diabetic chronic kidney disease; E10.51 Type 1 diabetes mellitus with diabetic peripheral angiopathy without gangrene; E66.01 Morbid (severe) obesity due to excess calories; Z68.41 Body mass index [BMI] 40.0-44.9, adult; E78.5 Hyperlipidemia, unspecified; F32.9 Major depressive disorder, single episode, unspecified; F41.9 Anxiety disorder, unspecified; I25.10 Atherosclerotic heart disease of native coronary artery without angina pectoris; I50.9 Heart failure, unspecified; I87.8 Other specified disorders of veins; Z95.5 Presence of coronary angioplasty implant and graft; Z90.5 Acquired absence of kidney; Z95.1 Presence of aortocoronary bypass graft; L89.321 Pressure ulcer of left buttock, stage 1; L89.311 Pressure ulcer of right buttock, stage 1; M19.90 Unspecified osteoarthritis, unspecified site; K21.9 Gastro-esophageal reflux disease without esophagitis; J44.9 Chronic obstructive pulmonary disease, unspecified
CPT/HCPCS: 78278; 80048; 80053; 80069; 82948; 84484; 85014; 85018; 85025; 85027; 85610; 85730; 86706; 86850; 86900; 86901; 86920; 87340; 87641; 93005; 99202; 99281; 99285; A9560; C9113; J0881; J1270; J1815; J7030; P9016; P9035

== ENCOUNTER 2017-02-11 09:56 | Inpatient (IN) | payer OTHER ==
[~2017-02-11] VITALS: Ht 188 cm; Wt 134.7 kg
[~2017-02-11 09:56] MED LIST changes: +AQUAPHILIC454 GM TP; +CALAMINE LOTIO120 ML TP; +PANTOPRAZOLE SO40 MG PO; +PREPARATION H O28 GM PR; +PREPARATION H1 EAC4 PR; +TYLENOL EXTRA500 MG PO
[2017-02-11 10:25] LABS: BASE EXCESS 12.8 mEq/L (-3 to +3); BICARBONATE 38.4 mEq/L (22-26); CARBOXY HGB 2.5 % (0-5); METHEMOGLOBIN 0.5 % (0-1.5); PCO2 54 mm Hg (35-45); PO2 55 mm Hg (80-100); pH 7.46 (7.35-7.45)
[2017-02-11 10:26] LABS: COMMENTS - BLOOD GASES A+C+; DEVICE NC; O2 FLOW 6 L/MIN; SITE RR
[2017-02-11 10:57] LABS: EOSINOPHIL (%) 1.6 % (0-5); EOSINOPHIL COUNT 0.1 K/uL (0-0.3); HEMATOCRIT 32.7 % (38.0-50.0); IMMATURE GRANULOCYTE (%) 0.6 % (0.0-0.7); INSTRUMENT ABS NEUTROPHIL CT 5.2 K/uL; LYMPHOCYTE COUNT 1.2 K/uL (1.0-2.8); MCH 30.9 PG (29.0-34.0); MCHC 31.5 G/DL (30.0-36.0); MCV 98.2 FL (86-99); MEAN PLAT.VOLUME 9.6 uM^3 (9.0-12.4); MONOCYTE (%) 6.1 % (3-12); MONOCYTE COUNT 0.4 K/uL (0-0.8); NEUTROPHIL (%) 74.1 % (45-76); NEUTROPHIL COUNT 5.2 K/uL (1.8-6.4); PLATELET COUNT 122 K/uL (156-360); RBC DIS.WIDTH-CV 13.6 % (11.8-14.6); RBC DIS.WIDTH-SD 48.9 % (39-53); RED BLOOD COUNT 3.33 M/uL (4.00-5.50)
[2017-02-11 11:00] LABS: INTER. NORMALIZED RATIO 1.1; PROTHROMBIN TIME 12.4 SEC (10.2-12.9)
[2017-02-11 11:02] LABS: PTT 31.2 SEC (25-37)
[2017-02-11 11:13] LABS: CHLORIDE 89 mEq/L (99-109); SODIUM 138 mEq/L (136-147)
[2017-02-11 11:15] LABS: GLUCOSE 314 mg/dL (70-99)
[2017-02-11 11:16] LABS: ANION GAP 15 MEQ/L (2-14); TROP-I INTERPRETATION NEGATIVE; TROPONIN-I 0.04 ng/mL (0.0-0.30)
[2017-02-11 11:19] LABS: GFR ESTIMATE (CALCULATED) 8 mL/min/
[2017-02-11 11:20] LABS: UREA NITROGEN (BUN) 19 mg/dL (9-23)
[2017-02-11 17:33] LABS: HEMATOCRIT 31.9 % (38.0-50.0); MCV 96.4 FL (86-99)
[2017-02-11 17:53] LABS: TROP-I INTERPRETATION NEGATIVE; TROPONIN-I 0.05 ng/mL (0.0-0.30)
[2017-02-11 20:00] VITALS: BP 130/48
[2017-02-11 20:13] LABS: HEMATOCRIT 33.4 % (38.0-50.0); MCV 97.9 FL (86-99)
[2017-02-11 20:30] VITALS: BP 128/65
[2017-02-11 20:33] LABS: TROP-I INTERPRETATION NEGATIVE; TROPONIN-I 0.06 ng/mL (0.0-0.30)
[2017-02-11 23:12] LABS: POINT-OF-CARE METER ID UU13113698
[2017-02-12 02:41] VITALS: BP 145/78
[2017-02-12 05:42] LABS: ANION GAP 12 MEQ/L (2-14); CHLORIDE 92 MEQ/L (99-109); GFR ESTIMATE (CALCULATED) 14 mL/min/; GLUCOSE 246 mg/dL (70-99); POTASSIUM 3.8 MEQ/L (3.7-5.4); SAMPLE HEMOLYSIS CHECK 0; SAMPLE ICTERIC CHECK 0; SAMPLE LIPEMIA CHECK 0; SODIUM 135 MEQ/L (136-147); UREA NITROGEN (BUN) 13 mg/dL (9-23)
[2017-02-12 06:29] LABS: INFLUENZA A VIRAL ANTIGEN NEGATIVE; INFLUENZA B VIRAL ANTIGEN NEGATIVE
[2017-02-12 07:57] LABS: HEMATOCRIT 29.5 % (38.0-50.0); MCH 30.8 PG (29.0-34.0); MCHC 31.2 G/DL (30.0-36.0); MCV 98.7 FL (86-99); MEAN PLAT.VOLUME 9.7 uM^3 (9.0-12.4); PLATELET COUNT 104 K/uL (156-360); RBC DIS.WIDTH-CV 13.7 % (11.8-14.6); RBC DIS.WIDTH-SD 49.2 % (39-53); RED BLOOD COUNT 2.99 M/uL (4.00-5.50); WHITE BLOOD COUNT 5.5 K/uL (4.1-10.2)
[2017-02-12 07:59] LABS: POINT-OF-CARE METER ID UU13113698; POINT-OF-CARE USER ID ENVKC36
[2017-02-12 08:09] LABS: ALKALINE PHOSPHATASE 49 IU/L (3-129); TOTAL BILIRUBIN 1.1 MG/DL (0.0-1.0)
[2017-02-12 08:20] VITALS: BP 137/72
[2017-02-12 12:14] VITALS: BP 125/53
[2017-02-12 12:19] LABS: POINT-OF-CARE METER ID UU14314088
[2017-02-12 16:20] VITALS: BP 111/61
[2017-02-12 16:54] LABS: POINT-OF-CARE METER ID UU14314088; POINT-OF-CARE USER ID ENVKC36
[2017-02-12 19:45] VITALS: BP 129/65
[2017-02-12 20:47] LABS: POINT-OF-CARE METER ID UU14174216
[2017-02-13 01:17] LABS: HEMATOCRIT 30.4 % (38.0-50.0); MCV 98.7 FL (86-99)
[2017-02-13 01:26] VITALS: BP 129/69
[2017-02-13 03:32] VITALS: BP 110/70
[2017-02-13 05:52] LABS: HEMATOCRIT 29.7 % (38.0-50.0); MCH 31.6 PG (29.0-34.0); MCHC 31.6 G/DL (30.0-36.0); MEAN PLAT.VOLUME 9.7 uM^3 (9.0-12.4); PLATELET COUNT 109 K/uL (156-360); RBC DIS.WIDTH-CV 13.9 % (11.8-14.6); RBC DIS.WIDTH-SD 50.4 % (39-53); RED BLOOD COUNT 2.97 M/uL (4.00-5.50); WHITE BLOOD COUNT 5.6 K/uL (4.1-10.2)
[2017-02-13 06:20] LABS: ANION GAP 9 MEQ/L (2-14); CHLORIDE 94 MEQ/L (99-109); GFR ESTIMATE (CALCULATED) 10 mL/min/; GLUCOSE 169 mg/dL (70-99); POTASSIUM 3.7 MEQ/L (3.7-5.4); SAMPLE HEMOLYSIS CHECK 0; SAMPLE ICTERIC CHECK 0; SAMPLE LIPEMIA CHECK 0; SODIUM 138 MEQ/L (136-147); UREA NITROGEN (BUN) 17 mg/dL (9-23); VANCOMYCIN, TROUGH 10.8 MCG/ML (10-20)
[2017-02-13 07:36] VITALS: BP 134/63
[2017-02-13 08:05] LABS: POINT-OF-CARE METER ID UU13113781; POINT-OF-CARE USER ID ENVKC36
[2017-02-13] MEDS ORDERED: LEVAQUIN250 MG PO (08:07)
[2017-02-13 12:12] LABS: POINT-OF-CARE METER ID UU13113698; POINT-OF-CARE USER ID ENVKC36
[2017-02-13 12:20] VITALS: BP 131/59
[2017-02-13 13:15] LABS: HEMATOCRIT 33.6 % (38.0-50.0); MCV 98.2 FL (86-99)
[2017-02-13 16:29] LABS: TYPE OF FLUID PLEURAL
[2017-02-13 16:30] VITALS: BP 129/57
[2017-02-13 16:55] LABS: POINT-OF-CARE METER ID UU13113698; POINT-OF-CARE USER ID ENVKC36
[2017-02-13 17:29] LABS: BODY FLUID PROTEIN < 3.0 G/DL
[2017-02-13 17:53] LABS: BODY FLUID EOSINOPHILS 0 % (0-25); BODY FLUID RBC'S 7000 /MM^3 (0-100); BODY FLUID WBC'S 283 /MM^3 (0-500); MONONUCLEAR WBC'S 81 %; POLYNUCLEAR WBC'S 19 % (0-25)
[2017-02-13 20:13] VITALS: BP 107/62
[2017-02-13 21:06] LABS: HEMATOCRIT 30.2 % (38.0-50.0); MCV 99.3 FL (86-99)
[2017-02-13 21:08] LABS: POINT-OF-CARE METER ID UU14174216
[2017-02-14 00:06] VITALS: BP 100/50
[2017-02-14 00:30] LABS: HEMATOCRIT 28.1 % (38.0-50.0); MCV 97.6 FL (86-99)
[2017-02-14 05:38] VITALS: BP 102/60
[2017-02-14 07:01] LABS: HEMATOCRIT 30.2 % (38.0-50.0); MCV 98.1 FL (86-99)
[2017-02-14 07:41] LABS: POINT-OF-CARE METER ID UU13113698
[2017-02-14 08:18] VITALS: BP 123/75
[2017-02-17 20:53] LABS: BODY FLUID PH 8.1 (())
== END 2017-02-14 11:21 | disposition home or self-care (01) | DRG 391 ==
LOC: EME 09:56 → EDOF 11:42 → 4EAST 11:42 → ENRESERV 11:44 → CANRESERV 11:48 → ENRESERV 11:48 → 4EAST 12:06 → ENRESERV 12:07 → 4EAST 19:34 → ENPENDDIS 02-14 11:19 → 4EAST 02-14 11:21
PROVIDERS: Emergency Medicine; Internal Medicine; Radiology Diagnostic Radiology
PROC: 5A1D70Z Performance of Urinary Filtration, Intermittent, Less than 6 Hours Per Day (ICD-10-PCS; principal; 2017-02-11)
DX: K21.9 Gastro-esophageal reflux disease without esophagitis (principal); N18.6 End stage renal disease; J96.21 Acute and chronic respiratory failure with hypoxia; I13.2 Hypertensive heart and chronic kidney disease with heart failure and with stage 5 chronic kidney disease, or end stage renal disease; D69.6 Thrombocytopenia, unspecified; J18.9 Pneumonia, unspecified organism; E78.5 Hyperlipidemia, unspecified; G47.33 Obstructive sleep apnea (adult) (pediatric); E11.22 Type 2 diabetes mellitus with diabetic chronic kidney disease; K92.1 Melena; J98.11 Atelectasis; E66.01 Morbid (severe) obesity due to excess calories; E11.40 Type 2 diabetes mellitus with diabetic neuropathy, unspecified; I25.10 Atherosclerotic heart disease of native coronary artery without angina pectoris; I50.9 Heart failure, unspecified; E11.21 Type 2 diabetes mellitus with diabetic nephropathy; I87.8 Other specified disorders of veins; D63.1 Anemia in chronic kidney disease; I73.9 Peripheral vascular disease, unspecified; F41.9 Anxiety disorder, unspecified; R15.9 Full incontinence of feces; F32.9 Major depressive disorder, single episode, unspecified; L89.159 Pressure ulcer of sacral region, unspecified stage; Z99.2 Dependence on renal dialysis; Z79.4 Long term (current) use of insulin; Z95.5 Presence of coronary angioplasty implant and graft; Z87.442 Personal history of urinary calculi; Z95.1 Presence of aortocoronary bypass graft; Z99.81 Dependence on supplemental oxygen; Z87.891 Personal history of nicotine dependence; Z90.5 Acquired absence of kidney; Z96.653 Presence of artificial knee joint, bilateral; Z68.38 Body mass index [BMI] 38.0-38.9, adult; Z80.1 Family history of malignant neoplasm of trachea, bronchus and lung; Y95 Nosocomial condition
CPT/HCPCS: 36600; 71010; 71020; 71250; 71275; 76942; 80048; 80053; 80069; 80202; 82803; 82948; 83880; 83986 90; 84157; 84484; 85014; 85018; 85025; 85027; 85610; 85730; 86850; 86900; 86901; 87040; 87070; 87075; 87205; 87449; 87502; 88108; 89051; 93005; 93306; 94640; 94640 76; 94760; 94799; 99202; 99281; 99285; C1753; C9113; J0456; J1644; J1756; J1815; J2543; J3370; J7050

== ENCOUNTER 2017-04-10 12:12 | Day surgery (SDC) | payer OTHER ==
[~2017-04-10] VITALS: Ht 188 cm; Wt 128.0 kg
[~2017-04-10 12:12] MED LIST changes: +LEVAQUIN250 MG PO
[2017-04-10 13:13] LABS: POINT-OF-CARE METER ID UU13113696
[2017-04-10 14:18] LABS: METH RESISTANT S AUREUS PCR NEGATIVE (NEGATIVE)
[2017-04-10 14:28] LABS: PROBE CHECK PASS; SPECIMEN PROCESSING CONTROL PASS
== END 2017-04-10 16:12 | disposition home or self-care (01) ==
LOC: CATH 12:12
PROVIDERS: Surgery
DX: T82.858A Stenosis of other vascular prosthetic devices, implants and grafts, initial encounter (principal); I12.0 Hypertensive chronic kidney disease with stage 5 chronic kidney disease or end stage renal disease; N18.6 End stage renal disease; Z99.2 Dependence on renal dialysis; E78.00 Pure hypercholesterolemia, unspecified; Z95.1 Presence of aortocoronary bypass graft; Z87.891 Personal history of nicotine dependence; Z79.82 Long term (current) use of aspirin
CPT/HCPCS: 82948; 87641; C1725; C1769; C1874; C1894; J1644; J2250; J3010

== ENCOUNTER → 2017-05-19 | Outpatient (CLI) | payer OTHER ==
[2017-05-19 11:50] LABS: TYPE OF FLUID PLEURAL
[2017-05-19 12:03] LABS: APPEARANCE YELLOW-CLEAR; BODY FLUID RBC'S 2000 /MM^3 (0-100); BODY FLUID WBC'S 170 /MM^3 (0-500)
[2017-05-19 12:18] LABS: GLUCOSE 259 mg/dL (70-99); LACTATE DEHYDROGENASE 139 IU/L (20-246)
[2017-05-19 12:45] LABS: BODY FLUID GLUCOSE 219 MG/DL; BODY FLUID LDH 64 IU/L; BODY FLUID PROTEIN < 3.0 G/DL
[2017-05-19 13:13] LABS: BODY FLUID EOSINOPHILS 0 % (0-25); MONONUCLEAR WBC'S 60 %; POLYNUCLEAR WBC'S 40 % (0-25)
== END | disposition home or self-care (01) ==
LOC: RAD 10:44 → EDSTATUS 11:00 → RAD 11:00
PROVIDERS: Internal Medicine Pulmonary Disease
PROC: 0W993ZZ Drainage of Right Pleural Cavity, Percutaneous Approach (ICD-10-PCS; principal; 2017-05-19)
DX: J90 Pleural effusion, not elsewhere classified (principal); Z95.1 Presence of aortocoronary bypass graft
CPT/HCPCS: 71046; 76942; 82945; 82947; 83615; 83615 91; 84155; 84157; 87070; 87075; 87116; 87205; 87206; 88108; 88305; 89051

== ENCOUNTER → 2017-05-21 | Outpatient (CLI) | payer OTHER ==
[2017-05-21 15:08] LABS: TYPE OF FLUID PLEURAL
[2017-05-21 15:49] LABS: GLUCOSE 233 mg/dL (70-99); LACTATE DEHYDROGENASE 130 IU/L (20-246); TOTAL PROTEIN 6.1 G/DL (6.4-8.3)
[2017-05-21 15:59] LABS: APPEARANCE YELLOW-CLEAR; BODY FLUID EOSINOPHILS 0 % (0-25); BODY FLUID GLUCOSE 235 MG/DL; BODY FLUID LDH 56 IU/L; BODY FLUID PROTEIN < 3.0 G/DL; BODY FLUID RBC'S < 1000 /MM^3 (0-100); BODY FLUID WBC'S 101 /MM^3 (0-500); MONONUCLEAR WBC'S 56 %; POLYNUCLEAR WBC'S 44 % (0-25)
== END | disposition home or self-care (01) ==
LOC: RAD 13:50 → EDSTATUS 14:00
PROVIDERS: Internal Medicine Pulmonary Disease
PROC: 0W9B3ZZ Drainage of Left Pleural Cavity, Percutaneous Approach (ICD-10-PCS; principal; 2017-05-21)
DX: J90 Pleural effusion, not elsewhere classified (principal)
CPT/HCPCS: 71046; 76942; 82945; 82947; 83615; 83615 91; 84155; 84157; 87070; 87116; 87205; 87206; 88108; 88305; 89051

== ENCOUNTER → 2017-06-04 | Outpatient (CLI) | payer OTHER ==
[~2017-06-04] MED LIST changes: +ANORO ELLIPTA1 EACH IH; +LASIX20 MG PO; +LIPITOR10 MG PO; +LISINOPRIL5 MG PO; +PROAIR HFA8.5 GM IH
== END | disposition home or self-care (01) ==
DX: R13.14 Dysphagia, pharyngoesophageal phase (principal); R13.11 Dysphagia, oral phase; J44.9 Chronic obstructive pulmonary disease, unspecified; Z87.01 Personal history of pneumonia (recurrent); Z87.19 Personal history of other diseases of the digestive system
CPT/HCPCS: 92611 GN; G8996 GN; G8997 GN; G8998 GN

== ENCOUNTER → 2017-06-09 | Outpatient (CLI) | payer OTHER ==
[~2017-06-09] MED LIST changes: -ANORO ELLIPTA1 EACH IH; -LASIX20 MG PO; -LIPITOR10 MG PO; -LISINOPRIL5 MG PO; -PROAIR HFA8.5 GM IH
[2017-06-09 12:00] LABS: TYPE OF FLUID PLEURAL
[2017-06-09 12:07] LABS: TYPE OF FLUID PLEURAL
[2017-06-09 12:44] LABS: BODY FLUID GLUCOSE 249 MG/DL; BODY FLUID LDH 75 IU/L
[2017-06-09 12:49] LABS: BODY FLUID PROTEIN < 3.0 G/DL
[2017-06-09 12:57] LABS: BODY FLUID GLUCOSE 249 MG/DL; BODY FLUID LDH 57 IU/L
[2017-06-09 12:58] LABS: BODY FLUID PROTEIN < 3.0 G/DL
[2017-06-09 13:13] LABS: APPEARANCE YELLOW-CLEAR; BODY FLUID EOSINOPHILS 11 % (0-25); BODY FLUID RBC'S 1000 /MM^3 (0-100); BODY FLUID WBC'S 201 /MM^3 (0-500); COMMENT MANY MACROPHAGES SEEN; MONONUCLEAR WBC'S 75 %; POLYNUCLEAR WBC'S 14 % (0-25)
[2017-06-09 13:15] LABS: APPEARANCE YELLOW-CLEAR; BODY FLUID EOSINOPHILS 5 % (0-25); BODY FLUID RBC'S < 1000 /MM^3 (0-100); BODY FLUID WBC'S 97 /MM^3 (0-500); COMMENT MANY MACROPHAGES SEEN; MONONUCLEAR WBC'S 69 %; POLYNUCLEAR WBC'S 26 % (0-25)
== END | disposition home or self-care (01) ==
LOC: RAD 10:24 → EDSTATUS 11:00 → RAD 11:00
PROVIDERS: Internal Medicine Pulmonary Disease
DX: J90 Pleural effusion, not elsewhere classified (principal)
CPT/HCPCS: 76942; 82945; 83615 91; 84157; 87070; 87075; 87116; 87205; 87206; 88108; 88305; 88312; 89051

== ENCOUNTER 2017-06-22 05:01 | Observation (INO) | payer OTHER ==
[~2017-06-22] VITALS: Ht 188 cm; Wt 119.2 kg
[2017-06-22 05:55] LABS: BASOPHIL (%) 0.7 % (0-1); EOSINOPHIL (%) 6.3 % (0-5); EOSINOPHIL COUNT 0.4 K/uL (0-0.3); HEMATOCRIT 37.4 % (38.0-50.0); IMMATURE GRANULOCYTE (%) 0.3 % (0.0-0.7); LYMPHOCYTE (%) 17.8 % (15-42); LYMPHOCYTE COUNT 1.1 K/uL (1.0-2.8); MCH 31.5 PG (29.0-34.0); MCHC 32.1 G/DL (30.0-36.0); MCV 98.2 FL (86-99); MONOCYTE (%) 5.3 % (3-12); MONOCYTE COUNT 0.3 K/uL (0-0.8); NEUTROPHIL (%) 69.6 % (45-76); NEUTROPHIL COUNT 4.2 K/uL (1.8-6.4); PLATELET COUNT 92 K/uL (156-360); RBC DIS.WIDTH-CV 14.1 % (11.8-14.6); RBC DIS.WIDTH-SD 51.1 % (39-53); RED BLOOD COUNT 3.81 M/uL (4.00-5.50)
[2017-06-22 06:06] LABS: BASE EXCESS 14.4 mEq/L (-3 to +3); BICARBONATE 41.5 mEq/L (22-26); CARBOXY HGB 2.1 % (0-5); pH 7.42 (7.35-7.45)
[2017-06-22 06:07] LABS: ALBUMIN 2.8 g/dL (3.2-4.8); CHLORIDE 96 mEq/L (99-109); POTASSIUM 5.1 mEq/L (3.7-5.4); SODIUM 138 mEq/L (136-147)
[2017-06-22 06:07] LABS: COMMENTS - BLOOD GASES A+C+; DEVICE VENT; FI02 50 %; MODE SPONT; PCO2 64 mm Hg (35-45); PEEP 5 CM/H20; PO2 95 mm Hg (80-100); PRES. SUPPORT 10 CM/H2O; SITE RR; TOTAL RESP RATE 20 resp/min
[2017-06-22 06:08] LABS: MAGNESIUM 2.3 mg/dL (1.3-2.7)
[2017-06-22 06:10] LABS: GLUCOSE 137 mg/dL (70-99); TOTAL PROTEIN 6.2 g/dL (6.4-8.3)
[2017-06-22 06:12] LABS: TOTAL BILIRUBIN 0.8 mg/dL (0.0-1.0)
[2017-06-22 06:13] LABS: ALKALINE PHOSPHATASE 76 IU/L (3-129); CREATININE 5.8 mg/dL (0.6-1.3); GFR ESTIMATE (CALCULATED) 10 mL/min/ (58.99-99999)
[2017-06-22 06:14] LABS: UREA NITROGEN (BUN) 21 mg/dL (9-23)
[2017-06-22 06:15] LABS: AST (GOT) 16 IU/L (2-34)
[2017-06-22 06:16] LABS: ALT (GPT) 9 IU/L (3-49)
[2017-06-22 06:18] LABS: TROP-I INTERPRETATION NEGATIVE; TROPONIN-I 0.08 ng/mL (0.0-0.30)
[2017-06-22 13:00] VITALS: BP 108/51
[2017-06-22 13:13] LABS: TROP-I INTERPRETATION NEGATIVE; TROPONIN-I 0.07 ng/mL (0.0-0.30)
[2017-06-22 14:00] LABS: HEPATITIS B SURFACE ANTIGEN Nonreactive
[2017-06-22] MEDS ORDERED: PROAIR HFA8.5 GM IH (15:33)
[2017-06-22] MEDS ORDERED: ANORO ELLIPTA1 EACH IH (15:34)
[2017-06-22] MEDS ORDERED: LIPITOR10 MG PO (15:35)
[2017-06-22 18:43] LABS: TROP-I INTERPRETATION NEGATIVE; TROPONIN-I 0.07 ng/mL (0.0-0.30)
[2017-06-22 20:45] VITALS: BP 108/54
[2017-06-23 00:19] VITALS: BP 149/60
[2017-06-23 03:29] VITALS: BP 148/67
[2017-06-23 05:55] LABS: CHLORIDE 101 MEQ/L (99-109); GFR ESTIMATE (CALCULATED) 15 mL/min/ (58.99-99999); GLUCOSE 162 mg/dL (70-99); POTASSIUM 4.8 MEQ/L (3.7-5.4); SODIUM 137 MEQ/L (136-147); UREA NITROGEN (BUN) 12 mg/dL (9-23)
[2017-06-23 05:56] LABS: CREATININE 4.2 MG/DL (0.6-1.3)
[2017-06-23 08:05] VITALS: BP 132/63
[2017-06-23 12:13] VITALS: BP 105/54
[2017-06-23 16:19] VITALS: BP 118/57
[2017-06-23] MEDS ORDERED: LISINOPRIL5 MG PO (17:53)
[2017-06-23] MEDS ORDERED: LASIX20 MG PO (17:53)
== END 2017-06-23 18:37 | disposition home or self-care (01) ==
LOC: EME → EDBD 05:01 → EME 05:01 → EDOF 08:21 → 4EAST 08:21 → EDOF 08:21 → ENRESERV 08:22 → EDOF 08:30 → ENRESERV 09:12 → 4EAST 12:23
PROVIDERS: Emergency Medicine; Internal Medicine; Internal Medicine Nephrology
PROC: 5A1D70Z Performance of Urinary Filtration, Intermittent, Less than 6 Hours Per Day (ICD-10-PCS; principal; 2017-06-22)
PROC: 0W9B3ZZ Drainage of Left Pleural Cavity, Percutaneous Approach (ICD-10-PCS; 2017-06-23)
DX: I13.2 Hypertensive heart and chronic kidney disease with heart failure and with stage 5 chronic kidney disease, or end stage renal disease (principal); I50.9 Heart failure, unspecified; E11.22 Type 2 diabetes mellitus with diabetic chronic kidney disease; N18.6 End stage renal disease; Z99.2 Dependence on renal dialysis; E11.21 Type 2 diabetes mellitus with diabetic nephropathy; L89.322 Pressure ulcer of left buttock, stage 2; I87.8 Other specified disorders of veins; L97.821 Non-pressure chronic ulcer of other part of left lower leg limited to breakdown of skin; L97.811 Non-pressure chronic ulcer of other part of right lower leg limited to breakdown of skin; E11.51 Type 2 diabetes mellitus with diabetic peripheral angiopathy without gangrene; Z87.891 Personal history of nicotine dependence; J96.01 Acute respiratory failure with hypoxia; D63.1 Anemia in chronic kidney disease; I25.10 Atherosclerotic heart disease of native coronary artery without angina pectoris; Z95.1 Presence of aortocoronary bypass graft; Z95.5 Presence of coronary angioplasty implant and graft; E78.5 Hyperlipidemia, unspecified; J44.9 Chronic obstructive pulmonary disease, unspecified; Z99.81 Dependence on supplemental oxygen; E11.40 Type 2 diabetes mellitus with diabetic neuropathy, unspecified; E66.01 Morbid (severe) obesity due to excess calories; N25.81 Secondary hyperparathyroidism of renal origin; M81.0 Age-related osteoporosis without current pathological fracture; R26.89 Other abnormalities of gait and mobility; Z91.81 History of falling; Z96.653 Presence of artificial knee joint, bilateral; Z90.49 Acquired absence of other specified parts of digestive tract; Z90.5 Acquired absence of kidney; Z80.1 Family history of malignant neoplasm of trachea, bronchus and lung; Z79.4 Long term (current) use of insulin
CPT/HCPCS: 36600; 71045; 76942; 80048; 80053; 81003; 82803; 82948; 83735; 83880; 84484; 85025; 87340; 93005; 93306; 94002; 94640 76; 94760; 94799; A6212; A6260; G0257; G0378; J1644; J1815; J1940; J7644

== ENCOUNTER 2017-07-03 08:29 | Emergency (ER) | payer OTHER ==
[~2017-07-03] VITALS: Ht 188 cm; Wt 123.5 kg
[~2017-07-03 08:29] MED LIST changes: +ANORO ELLIPTA1 EACH IH; +LASIX20 MG PO; +LIPITOR10 MG PO; +LISINOPRIL5 MG PO; +PROAIR HFA8.5 GM IH
[2017-07-03 09:38] LABS: HEMATOCRIT 37.3 % (38.0-50.0); HEMOGLOBIN 12.1 G/DL (12.5-16.6); MCH 31.8 PG (29.0-34.0); MCHC 32.4 G/DL (30.0-36.0); MCV 97.9 FL (86-99); PLATELET COUNT 85 K/uL (156-360); RBC DIS.WIDTH-CV 13.8 % (11.8-14.6); RBC DIS.WIDTH-SD 50.1 % (39-53); RED BLOOD COUNT 3.81 M/uL (4.00-5.50); WHITE BLOOD COUNT 4.4 K/uL (4.1-10.2)
[2017-07-03 09:47] LABS: PTT 30.1 SEC (25-37)
[2017-07-03 09:50] LABS: CHLORIDE 94 mEq/L (99-109); POTASSIUM 3.9 mEq/L (3.7-5.4); SODIUM 137 mEq/L (136-147)
[2017-07-03 09:52] LABS: GLUCOSE 237 mg/dL (70-99)
[2017-07-03 09:56] LABS: CREATININE 3.4 mg/dL (0.6-1.3); GFR ESTIMATE (CALCULATED) 19 mL/min/ (58.99-99999)
[2017-07-03 09:57] LABS: UREA NITROGEN (BUN) 12 mg/dL (9-23)
[2017-07-03 12:04] VITALS: BP 117/51
== END 2017-07-03 12:20 | disposition home or self-care (01) ==
LOC: EME 08:29
PROVIDERS: Emergency Medicine
PROC: 0W9B3ZZ Drainage of Left Pleural Cavity, Percutaneous Approach (ICD-10-PCS; principal; 2017-07-03)
DX: J90 Pleural effusion, not elsewhere classified (principal); I13.2 Hypertensive heart and chronic kidney disease with heart failure and with stage 5 chronic kidney disease, or end stage renal disease; I50.9 Heart failure, unspecified; N18.6 End stage renal disease; Z99.2 Dependence on renal dialysis; E11.22 Type 2 diabetes mellitus with diabetic chronic kidney disease; J44.9 Chronic obstructive pulmonary disease, unspecified; E78.5 Hyperlipidemia, unspecified; K21.9 Gastro-esophageal reflux disease without esophagitis; B19.20 Unspecified viral hepatitis C without hepatic coma; I25.2 Old myocardial infarction; Z99.81 Dependence on supplemental oxygen; Z90.5 Acquired absence of kidney; Z87.442 Personal history of urinary calculi; Z87.891 Personal history of nicotine dependence; Z79.4 Long term (current) use of insulin; Z95.5 Presence of coronary angioplasty implant and graft; Z95.1 Presence of aortocoronary bypass graft; Z96.651 Presence of right artificial knee joint; Z85.828 Personal history of other malignant neoplasm of skin; Z90.49 Acquired absence of other specified parts of digestive tract; Z91.041 Radiographic dye allergy status
CPT/HCPCS: 71045; 76942; 80048; 85027; 85610; 85730; 99281; 99284

== ENCOUNTER 2017-07-22 16:43 | Inpatient (IN) | payer OTHER ==
[~2017-07-22] VITALS: Ht 188 cm; Wt 117.8 kg
[~2017-07-22 16:43] MED LIST changes: +NOVOLIN,HU100 UNITS/ SC; -NOVOLOG MI100 UNIT/2 SC
[2017-07-22 17:23] LABS: HEMATOCRIT 37.1 % (38.0-50.0); HEMOGLOBIN 11.9 G/DL (12.5-16.6); MCH 31.8 PG (29.0-34.0); MCHC 32.1 G/DL (30.0-36.0); MCV 99.2 FL (86-99); PLATELET COUNT 63 K/uL (156-360); RBC DIS.WIDTH-CV 13.5 % (11.8-14.6); RBC DIS.WIDTH-SD 49.3 % (39-53); RED BLOOD COUNT 3.74 M/uL (4.00-5.50); WHITE BLOOD COUNT 5.1 K/uL (4.1-10.2)
[2017-07-22 17:33] LABS: CHLORIDE 94 mEq/L (99-109); POTASSIUM 4.9 mEq/L (3.7-5.4); SODIUM 138 mEq/L (136-147)
[2017-07-22 17:35] LABS: GLUCOSE 200 mg/dL (70-99)
[2017-07-22 17:38] LABS: CREATININE 5.3 mg/dL (0.6-1.3); GFR ESTIMATE (CALCULATED) 11 mL/min/ (58.99-99999)
[2017-07-22 17:39] LABS: UREA NITROGEN (BUN) 20 mg/dL (9-23)
[2017-07-22 17:46] LABS: TROP-I INTERPRETATION NEGATIVE; TROPONIN-I 0.05 ng/mL (0.0-0.30)
[2017-07-22] MEDS ORDERED: PROTONIX40 MG PO (19:05)
[2017-07-22] MEDS ORDERED: FUROSEMIDE20 MG PO (19:05)
[2017-07-22] MEDS ORDERED: ALBUTEROL2.5 MG/3 M IH (19:06)
[2017-07-22 19:08] LABS: ALBUMIN 2.9 g/dL (3.2-4.8)
[2017-07-22 19:08] LABS: BASE EXCESS 14.3 mEq/L (-3 to +3); BICARBONATE 42.9 mEq/L (22-26); CARBOXY HGB 2.3 % (0-5); METHEMOGLOBIN 0.8 % (0-1.5); PO2 79 mm Hg (80-100); pH 7.36 (7.35-7.45)
[2017-07-22 19:09] LABS: COMMENTS - BLOOD GASES A+C+; DEVICE NC; O2 FLOW 4 L/MIN; PCO2 76 mm Hg (35-45); SITE RR; TOTAL RESP RATE 20 resp/min
[2017-07-22 19:12] LABS: TOTAL BILIRUBIN 0.5 mg/dL (0.0-1.0)
[2017-07-22 19:13] LABS: ALKALINE PHOSPHATASE 69 IU/L (3-129)
[2017-07-22 19:16] LABS: ALT (GPT) 7 IU/L (3-49); AST (GOT) 9 IU/L (2-34); DIRECT BILIRUBIN 0.3 mg/dL (0.0-0.3)
[2017-07-22 19:17] LABS: LIPASE 43 U/L (1.0-51.0)
[2017-07-22 23:56] VITALS: BP 125/60
[2017-07-23 04:13] VITALS: BP 100/60
[2017-07-23 06:01] LABS: HEMATOCRIT 32.5 % (38.0-50.0); HEMOGLOBIN 10.3 G/DL (12.5-16.6); MCH 31.7 PG (29.0-34.0); MCHC 31.7 G/DL (30.0-36.0); PLATELET COUNT 53 K/uL (156-360); RBC DIS.WIDTH-CV 13.6 % (11.8-14.6); RBC DIS.WIDTH-SD 50.7 % (39-53); RED BLOOD COUNT 3.25 M/uL (4.00-5.50); WHITE BLOOD COUNT 3.8 K/uL (4.1-10.2)
[2017-07-23 06:26] LABS: CHLORIDE 95 MEQ/L (99-109); CREATININE 5.6 MG/DL (0.6-1.3); GFR ESTIMATE (CALCULATED) 11 mL/min/ (58.99-99999); GLUCOSE 148 mg/dL (70-99); POTASSIUM 4.1 MEQ/L (3.7-5.4); SODIUM 139 MEQ/L (136-147); UREA NITROGEN (BUN) 22 mg/dL (9-23)
[2017-07-23 06:33] VITALS: BP 84/45
[2017-07-23 07:16] VITALS: BP 110/54
[2017-07-23 12:28] VITALS: BP 120/58
[2017-07-23 16:56] VITALS: BP 120/58
[2017-07-24] VITALS (8 sets, daily range): BP systolic 80–115; BP diastolic 42–59
[2017-07-24 15:12] LABS: C DIFF TOXIN NEGATIVE (NEGATIVE)
[2017-07-25 04:41] VITALS: BP 97/54
[2017-07-25 08:29] LABS: HEMOGLOBIN 10.1 G/DL (12.5-16.6); MCH 32.1 PG (29.0-34.0); MCHC 32.6 G/DL (30.0-36.0); MCV 98.4 FL (86-99); RBC DIS.WIDTH-SD 49.8 % (39-53); RED BLOOD COUNT 3.15 M/uL (4.00-5.50); WHITE BLOOD COUNT 10.1 K/uL (4.1-10.2)
[2017-07-25 08:30] LABS: PLATELET COUNT 81 K/uL (156-360)
[2017-07-25 08:48] LABS: CHLORIDE 96 MEQ/L (99-109); GFR ESTIMATE (CALCULATED) 12 mL/min/ (58.99-99999); POTASSIUM 4.6 MEQ/L (3.7-5.4); SODIUM 134 MEQ/L (136-147); UREA NITROGEN (BUN) 32 mg/dL (9-23); VANCOMYCIN, TROUGH 22.7 MCG/ML (10-20)
[2017-07-25 08:52] LABS: GLUCOSE 320 mg/dL (70-99)
[2017-07-25 13:14] VITALS: BP 109/54
[2017-07-25 15:00] VITALS: BP 117/57
[2017-07-25 23:24] VITALS: BP 71/37
[2017-07-26] VITALS (7 sets, daily range): BP systolic 102–149; BP diastolic 58–77
[2017-07-27] VITALS (21 sets, daily range): BP systolic 86–156; BP diastolic 43–95
[2017-07-27 07:45] LABS: BASOPHIL (%) 0.1 % (0-1); EOSINOPHIL (%) 0 % (0-5); HEMATOCRIT 37.2 % (38.0-50.0); HEMOGLOBIN 11.8 G/DL (12.5-16.6); IMMATURE GRANULOCYTE (%) 0.7 % (0.0-0.7); LYMPHOCYTE (%) 7.1 % (15-42); LYMPHOCYTE COUNT 0.5 K/uL (1.0-2.8); MCH 31.9 PG (29.0-34.0); MCHC 31.7 G/DL (30.0-36.0); MCV 100.5 FL (86-99); MONOCYTE (%) 3.4 % (3-12); MONOCYTE COUNT 0.3 K/uL (0-0.8); NEUTROPHIL (%) 88.7 % (45-76); NEUTROPHIL COUNT 6.8 K/uL (1.8-6.4); NRBC (%) 0.3 /100 WBC (0-0); PLATELET COUNT 62 K/uL (156-360); RBC DIS.WIDTH-CV 14.1 % (11.8-14.6); RBC DIS.WIDTH-SD 52.1 % (39-53); WHITE BLOOD COUNT 7.6 K/uL (4.1-10.2)
[2017-07-27 08:11] LABS: ALBUMIN 3.1 G/DL (3.2-4.8); CHLORIDE 98 MEQ/L (99-109); CREATININE 4.7 MG/DL (0.6-1.3); GFR ESTIMATE (CALCULATED) 13 mL/min/ (58.99-99999); GLUCOSE 321 mg/dL (70-99); PHOSPHORUS 5.7 mg/dL (2.5-4.9); POTASSIUM 4.9 MEQ/L (3.7-5.4); SODIUM 136 MEQ/L (136-147); UREA NITROGEN (BUN) 31 mg/dL (9-23)
[2017-07-27 09:35] LABS: BASE EXCESS 2.3 mEq/L (-3 to +3); CARBOXY HGB 1.7 % (0-5); METHEMOGLOBIN 1.5 % (0-1.5); PO2 87 mm Hg (80-100)
[2017-07-27 09:36] LABS: BICARBONATE 32.5 mEq/L (22-26); DEVICE NC; O2 FLOW 4 L/MIN; PCO2 85 mm Hg (35-45); SITE RR
[2017-07-27 09:37] LABS: pH 7.19 (7.35-7.45)
[2017-07-27 11:43] LABS: BASE EXCESS 2.1 mEq/L (-3 to +3); BICARBONATE 31.4 mEq/L (22-26); CARBOXY HGB 1.7 % (0-5); METHEMOGLOBIN 1.6 % (0-1.5)
[2017-07-27 11:55] LABS: COMMENTS - BLOOD GASES NAC+; DEVICE PB 840 NIPPV; FI02 40 %; MODE SPONT; PCO2 75 mm Hg (35-45); PEEP 5 CM/H20; PO2 126 mm Hg (80-100); PRES. SUPPORT 12 CM/H2O; SITE RR; TOTAL RESP RATE 18 resp/min
[2017-07-27 11:56] LABS: pH 7.23 (7.35-7.45)
[2017-07-27 13:33] LABS: BASE EXCESS 1.9 mEq/L (-3 to +3); BICARBONATE 31.6 mEq/L (22-26); METHEMOGLOBIN 1.3 % (0-1.5); PCO2 79 mm Hg (35-45)
[2017-07-27 13:35] LABS: COMMENTS - BLOOD GASES C+; CONTINUOUS POS AIRWAY PRESSURE 5 cm H2O; DEVICE VENT; FI02 40 %; MECHANICAL RATE 18 resp/min; MODE SIMV; PO2 106 mm Hg (80-100); PRES. SUPPORT 12 CM/H2O; SITE RR; TIDAL VOLUME 588 ML; TOTAL RESP RATE 20 resp/min
[2017-07-27 13:36] LABS: pH 7.21 (7.35-7.45)
[2017-07-27 16:22] LABS: BASE EXCESS 2.1 mEq/L (-3 to +3); BICARBONATE 31.4 mEq/L (22-26); CARBOXY HGB 1.7 % (0-5); METHEMOGLOBIN 1.5 % (0-1.5); PCO2 75 mm Hg (35-45); PO2 131 mm Hg (80-100)
[2017-07-27 16:23] LABS: COMMENTS - BLOOD GASES A+C+; DEVICE NIV; FI02 40 %; MECHANICAL RATE 18 resp/min; MODE SIMV; PEEP 5 CM/H20; PRES. SUPPORT 12 CM/H2O; SITE RR; TIDAL VOLUME 600 ML; TOTAL RESP RATE 26 resp/min; pH 7.23 (7.35-7.45)
[2017-07-28] VITALS (19 sets, daily range): BP systolic 93–156; BP diastolic 43–95
[2017-07-28 05:54] LABS: ALBUMIN 2.7 G/DL (3.2-4.8); CHLORIDE 99 MEQ/L (99-109); GFR ESTIMATE (CALCULATED) 17 mL/min/ (58.99-99999); GLUCOSE 189 mg/dL (70-99); PHOSPHORUS 4.4 mg/dL (2.5-4.9); POTASSIUM 4.3 MEQ/L (3.7-5.4); SODIUM 139 MEQ/L (136-147); UREA NITROGEN (BUN) 20 mg/dL (9-23)
[2017-07-28 05:56] LABS: CREATININE 3.7 MG/DL (0.6-1.3)
[2017-07-29] VITALS (15 sets, daily range): BP systolic 62–148; BP diastolic 39–72
[2017-07-29 05:46] LABS: BASOPHIL (%) 0 % (0-1); EOSINOPHIL (%) 0 % (0-5); HEMATOCRIT 33.5 % (38.0-50.0); HEMOGLOBIN 10.6 G/DL (12.5-16.6); IMMATURE GRANULOCYTE (%) 0.4 % (0.0-0.7); LYMPHOCYTE (%) 4.4 % (15-42); LYMPHOCYTE COUNT 0.2 K/uL (1.0-2.8); MCH 31.3 PG (29.0-34.0); MCHC 31.6 G/DL (30.0-36.0); MCV 98.8 FL (86-99); MONOCYTE (%) 3.4 % (3-12); MONOCYTE COUNT 0.2 K/uL (0-0.8); NEUTROPHIL (%) 91.8 % (45-76); NEUTROPHIL COUNT 4.6 K/uL (1.8-6.4); PLATELET COUNT 52 K/uL (156-360); RBC DIS.WIDTH-CV 13.9 % (11.8-14.6); RBC DIS.WIDTH-SD 50.4 % (39-53); RED BLOOD COUNT 3.39 M/uL (4.00-5.50)
[2017-07-29 05:48] LABS: ALBUMIN 2.7 G/DL (3.2-4.8); CHLORIDE 98 MEQ/L (99-109); GFR ESTIMATE (CALCULATED) 13 mL/min/ (58.99-99999); MAGNESIUM 2.3 mg/dl (1.3-2.7); PHOSPHORUS 4.9 mg/dL (2.5-4.9); POTASSIUM 4.6 MEQ/L (3.7-5.4); SODIUM 138 MEQ/L (136-147); UREA NITROGEN (BUN) 30 mg/dL (9-23); VANCOMYCIN, TROUGH 23.4 MCG/ML (10-20)
[2017-07-29 05:49] LABS: CREATININE 4.6 MG/DL (0.6-1.3); GLUCOSE 399 mg/dL (70-99)
[2017-07-30] VITALS (11 sets, daily range): BP systolic 102–146; BP diastolic 54–85
[2017-07-30 05:30] LABS: BASOPHIL (%) 0 % (0-1); EOSINOPHIL (%) 0 % (0-5); HEMATOCRIT 31.5 % (38.0-50.0); HEMOGLOBIN 10.4 G/DL (12.5-16.6); IMMATURE GRANULOCYTE (%) 0.7 % (0.0-0.7); LYMPHOCYTE (%) 6.7 % (15-42); LYMPHOCYTE COUNT 0.4 K/uL (1.0-2.8); MCH 32.1 PG (29.0-34.0); MCV 97.2 FL (86-99); MONOCYTE (%) 5.2 % (3-12); MONOCYTE COUNT 0.3 K/uL (0-0.8); NEUTROPHIL (%) 87.4 % (45-76); NEUTROPHIL COUNT 5.2 K/uL (1.8-6.4); PLATELET COUNT 52 K/uL (156-360); RBC DIS.WIDTH-SD 49.6 % (39-53); RED BLOOD COUNT 3.24 M/uL (4.00-5.50)
[2017-07-30 06:12] LABS: CHLORIDE 96 MEQ/L (99-109); GFR ESTIMATE (CALCULATED) 17 mL/min/ (58.99-99999); GLUCOSE 362 mg/dL (70-99); POTASSIUM 4.4 MEQ/L (3.7-5.4); SODIUM 134 MEQ/L (136-147); UREA NITROGEN (BUN) 21 mg/dL (9-23)
[2017-07-30 06:14] LABS: CREATININE 3.7 MG/DL (0.6-1.3)
[2017-07-31] VITALS (17 sets, daily range): BP systolic 94–144; BP diastolic 37–86
[2017-07-31 07:28] LABS: ALBUMIN 2.5 G/DL (3.2-4.8); CHLORIDE 100 MEQ/L (99-109); GFR ESTIMATE (CALCULATED) 13 mL/min/ (58.99-99999); PHOSPHORUS 3.4 mg/dL (2.5-4.9); POTASSIUM 4.4 MEQ/L (3.7-5.4); SODIUM 136 MEQ/L (136-147); UREA NITROGEN (BUN) 29 mg/dL (9-23)
[2017-07-31 07:35] LABS: CREATININE 4.7 MG/DL (0.6-1.3); GLUCOSE 155 mg/dL (70-99)
[2017-07-31 08:23] LABS: BASE EXCESS 4.4 mEq/L (-3 to +3); BICARBONATE 32.8 mEq/L (22-26); CARBOXY HGB 2.2 % (0-5); METHEMOGLOBIN 1.5 % (0-1.5); PCO2 73 mm Hg (35-45)
[2017-07-31 08:24] LABS: O2 FLOW 4 L/MIN; PO2 46 mm Hg (80-100); SITE RR; pH 7.26 (7.35-7.45)
[2017-07-31 08:25] LABS: COMMENTS - BLOOD GASES CR; DEVICE NC
[2017-07-31 12:17] LABS: BASE EXCESS 3.8 mEq/L (-3 to +3); BICARBONATE 32.5 mEq/L (22-26); CARBOXY HGB 1.8 % (0-5); COMMENTS - BLOOD GASES A+C+; METHEMOGLOBIN 1.3 % (0-1.5); PCO2 74 mm Hg (35-45); PO2 196 mm Hg (80-100); SITE RR; pH 7.25 (7.35-7.45)
[2017-07-31 12:18] LABS: DEVICE 980 PB; FI02 50 %; MECHANICAL RATE 12 resp/min; MODE SIMV; O2 FLOW 65 L/MIN; PEEP 5 CM/H20; PRES. SUPPORT 10 CM/H2O; TIDAL VOLUME 500 ML; TOTAL RESP RATE 25 resp/min
[2017-08-01] VITALS (19 sets, daily range): BP systolic 80–136; BP diastolic 36–75
[2017-08-01 09:13] LABS: BASE EXCESS 7.4 mEq/L (-3 to +3); BICARBONATE 34.1 mEq/L (22-26); CARBOXY HGB 1.8 % (0-5); COMMENTS - BLOOD GASES NA C+; DEVICE MASK VENT; FI02 30 %; MECHANICAL RATE 12 resp/min; METHEMOGLOBIN 1.5 % (0-1.5); PCO2 59 mm Hg (35-45); PO2 123 mm Hg (80-100); SITE RR; pH 7.37 (7.35-7.45)
[2017-08-01 09:14] LABS: MODE SIMV; PEEP 5 CM/H20; PRES. SUPPORT 10 CM/H2O; TIDAL VOLUME 500 ML; TOTAL RESP RATE 19 resp/min
[2017-08-02] VITALS: BP 115/49
[2017-08-02 02:00] VITALS: BP 131/36
[2017-08-02 04:00] VITALS: BP 99/46
[2017-08-02 06:00] VITALS: BP 121/60
[2017-08-02 08:02] VITALS: BP 122/72
[2017-08-02 08:51] LABS: BASE EXCESS 4.6 mEq/L (-3 to +3); BICARBONATE 31.9 mEq/L (22-26); CARBOXY HGB 1.5 % (0-5); COMMENTS - BLOOD GASES NA C+; METHEMOGLOBIN 1.6 % (0-1.5); O2 FLOW 3 L/MIN; PCO2 62 mm Hg (35-45); PO2 135 mm Hg (80-100); SITE RR; pH 7.32 (7.35-7.45)
[2017-08-02 08:52] LABS: DEVICE NC; TOTAL RESP RATE 15 resp/min
[2017-08-02] MEDS ORDERED: MEDROL DOSEPAK4 MG PO ×2 (09:49→10:03)
[2017-08-02] MEDS ORDERED: COREG6.25 M1 PO ×2 (09:50→10:01)
[2017-08-02] MEDS ORDERED: ALDACTONE25 MG PO ×2 (09:52→10:00)
[2017-08-18] MEDS ORDERED: VENTOLIN HFA18 GM PO (16:51)
[2017-08-18] MEDS ORDERED: PERCOCET 10/1 TABLET PO (16:52)
== END 2017-08-02 11:29 | disposition home health service (06) | DRG 981 ==
LOC: EME 16:43 → 5EAST 22:11 → 4WEST 22:11 → EDOF 22:11 → ENRESERV 22:13 → 5EAST 23:41 → CANRESERV 07-27 10:07 → ENRESERV 07-27 10:07 → 4WEST 07-27 10:29 → ENRESERV 07-30 13:31 → 4EAST 07-30 14:44 → ENRESERV 07-31 08:47 → 4WEST 07-31 09:00
PROVIDERS: Emergency Medicine; Hospitalist; Internal Medicine; Internal Medicine Critical Care Medicine; Internal Medicine Nephrology; Specialist
DX: J96.22 Acute and chronic respiratory failure with hypercapnia (principal); J44.1 Chronic obstructive pulmonary disease with (acute) exacerbation; J96.21 Acute and chronic respiratory failure with hypoxia; J69.0 Pneumonitis due to inhalation of food and vomit; I13.2 Hypertensive heart and chronic kidney disease with heart failure and with stage 5 chronic kidney disease, or end stage renal disease; T82.868A Thrombosis due to vascular prosthetic devices, implants and grafts, initial encounter; Y83.2 Surgical operation with anastomosis, bypass or graft as the cause of abnormal reaction of the patient, or of later complication, without mention of misadventure at the time of the procedure; I50.22 Chronic systolic (congestive) heart failure; N18.6 End stage renal disease; Z99.2 Dependence on renal dialysis; Z87.891 Personal history of nicotine dependence; K21.9 Gastro-esophageal reflux disease without esophagitis; E78.5 Hyperlipidemia, unspecified; I25.10 Atherosclerotic heart disease of native coronary artery without angina pectoris; I25.5 Ischemic cardiomyopathy; E11.40 Type 2 diabetes mellitus with diabetic neuropathy, unspecified; E11.22 Type 2 diabetes mellitus with diabetic chronic kidney disease; Z99.81 Dependence on supplemental oxygen; Z90.5 Acquired absence of kidney; Z95.5 Presence of coronary angioplasty implant and graft; Z96.653 Presence of artificial knee joint, bilateral; D63.1 Anemia in chronic kidney disease; D61.818 Other pancytopenia; I25.810 Atherosclerosis of coronary artery bypass graft(s) without angina pectoris; I27.20 Pulmonary hypertension, unspecified; I08.1 Rheumatic disorders of both mitral and tricuspid valves; K52.9 Noninfective gastroenteritis and colitis, unspecified; I95.3 Hypotension of hemodialysis; Z79.4 Long term (current) use of insulin; N25.81 Secondary hyperparathyroidism of renal origin; I47.2 Ventricular tachycardia; E66.9 Obesity, unspecified; Z68.34 Body mass index [BMI] 34.0-34.9, adult; G47.33 Obstructive sleep apnea (adult) (pediatric); M81.0 Age-related osteoporosis without current pathological fracture; R13.10 Dysphagia, unspecified
CPT/HCPCS: 36600; 71045; 71046; 71250; 74176; 74230; 76942; 80048; 80069; 80076; 80202; 82803; 82948; 83605; 83690; 83735; 84145 90; 84484; 85025; 85027; 86850; 86900; 86901; 87040; 87070; 87075; 87205; 87493; 87641; 92526 GN; 92610 GN; 92611 GN; 93005; 94002; 94003; 94640; 94640 76; 94799; 99202; 99281; 99285; C1725; C1757; C1769; C1788; C1894; C2628; J0690; J0692; J1644; J1815; J1940; J2060; J2250; J2543; J2920; J2930; J3010; J3370; J7030; J7040; J7050; P9035; S0020; S0030

== ENCOUNTER 2017-08-09 22:05 | Emergency (ER) | payer OTHER ==
[~2017-08-09] VITALS: Ht 188 cm; Wt 121.1 kg
[~2017-08-09 22:05] MED LIST changes: +ALBUTEROL2.5 MG/3 M IH; +ALDACTONE25 MG PO; +COREG6.25 M1 PO; +FUROSEMIDE20 MG PO; +MEDROL DOSEPAK4 MG PO; +PROTONIX40 MG PO
[2017-08-10 01:47] VITALS: BP 134/72
[2017-08-18] MEDS ORDERED: VENTOLIN HFA18 GM PO (16:51)
[2017-08-18] MEDS ORDERED: PERCOCET 10/1 TABLET PO (16:52)
== END 2017-08-10 01:48 | disposition home or self-care (01) ==
LOC: EME → EDBD 22:05 → EME 22:05
PROC: 0HQ1XZZ Repair Face Skin, External Approach (ICD-10-PCS; principal; 2017-08-09)
DX: S01.81XA Laceration without foreign body of other part of head, initial encounter (principal); S01.111A Laceration without foreign body of right eyelid and periocular area, initial encounter; S00.83XA Contusion of other part of head, initial encounter; S50.311A Abrasion of right elbow, initial encounter; S80.211A Abrasion, right knee, initial encounter; W01.0XXA Fall on same level from slipping, tripping and stumbling without subsequent striking against object, initial encounter; Y93.01 Activity, walking, marching and hiking; J45.909 Unspecified asthma, uncomplicated; E78.5 Hyperlipidemia, unspecified; I13.2 Hypertensive heart and chronic kidney disease with heart failure and with stage 5 chronic kidney disease, or end stage renal disease; I50.9 Heart failure, unspecified; N18.6 End stage renal disease; Z99.2 Dependence on renal dialysis; E11.22 Type 2 diabetes mellitus with diabetic chronic kidney disease; B19.20 Unspecified viral hepatitis C without hepatic coma; K21.9 Gastro-esophageal reflux disease without esophagitis; I25.2 Old myocardial infarction; Z87.442 Personal history of urinary calculi; Z85.828 Personal history of other malignant neoplasm of skin; Z90.49 Acquired absence of other specified parts of digestive tract; Z90.5 Acquired absence of kidney; Z95.5 Presence of coronary angioplasty implant and graft; Z95.1 Presence of aortocoronary bypass graft; Z96.651 Presence of right artificial knee joint; Z87.891 Personal history of nicotine dependence; Z79.4 Long term (current) use of insulin; Z91.041 Radiographic dye allergy status
CPT/HCPCS: 70450; 70486; 72125; 80048; 81003; 84484; 85027; 93005; 99281; 99284

== ENCOUNTER → 2017-08-25 | Outpatient (CLI) | payer OTHER ==
[~2017-08-25] MED LIST changes: +VENTOLIN HFA18 GM PO
== END | disposition home or self-care (01) ==
LOC: OPR 08:19 → EDSTATUS 09:00 → OPR 09:00
PROVIDERS: Nurse Practitioner Adult Health
PROC: 0B9N30Z Drainage of Right Pleura with Drainage Device, Percutaneous Approach (ICD-10-PCS; principal; 2017-08-25)
DX: J90 Pleural effusion, not elsewhere classified (principal); J44.9 Chronic obstructive pulmonary disease, unspecified; G47.33 Obstructive sleep apnea (adult) (pediatric); E78.5 Hyperlipidemia, unspecified; E11.22 Type 2 diabetes mellitus with diabetic chronic kidney disease; I12.0 Hypertensive chronic kidney disease with stage 5 chronic kidney disease or end stage renal disease; N18.6 End stage renal disease; Z87.891 Personal history of nicotine dependence; Z79.4 Long term (current) use of insulin
CPT/HCPCS: 32557; 82948; 85027; 85610; 85730; C1729; J3010

== ENCOUNTER 2017-10-19 05:13 | Inpatient (IN) | payer OTHER ==
[~2017-10-19] VITALS: Ht 188 cm; Wt 107.0 kg
[2017-10-19 06:24] LABS: HEMATOCRIT 28.1 % (38.0-50.0); HEMOGLOBIN 9.4 G/DL (12.5-16.6); MCH 31.3 PG (29.0-34.0); MCHC 33.5 G/DL (30.0-36.0); MCV 93.7 FL (86-99); PLATELET COUNT 107 K/uL (156-360); RBC DIS.WIDTH-CV 12.9 % (11.8-14.6); WHITE BLOOD COUNT 6.1 K/uL (4.1-10.2)
[2017-10-19 06:27] LABS: CARBON DIOXIDE (BICARBONATE) > 40.0 MEQ/L (20-31); VENOUS PCO2 77 mm Hg (41-51)
[2017-10-19 06:33] LABS: INTER. NORMALIZED RATIO 1.1
[2017-10-19 06:35] LABS: PTT 30.2 SEC (25-37)
[2017-10-19 06:39] LABS: CHLORIDE 87 mEq/L (99-109); POTASSIUM 4.5 mEq/L (3.7-5.4); SODIUM 133 mEq/L (136-147)
[2017-10-19 06:41] LABS: GLUCOSE 355 mg/dL (70-99)
[2017-10-19 06:45] LABS: CREATININE 5.9 mg/dL (0.6-1.3); GFR ESTIMATE (CALCULATED) 10 mL/min/ (58.99-99999); UREA NITROGEN (BUN) 45 mg/dL (9-23)
[2017-10-19 06:50] LABS: TROP-I INTERPRETATION NEGATIVE; TROPONIN-I 0.06 ng/mL (0.0-0.30)
[2017-10-19 08:23] LABS: COMMENTS - BLOOD GASES C+; DEVICE NC; O2 FLOW 4 L/MIN; SITE RB; TOTAL RESP RATE 16 resp/min
[2017-10-19 08:24] LABS: BICARBONATE 39.5 mEq/L (22-26); CARBOXY HGB 2.3 % (0-5); METHEMOGLOBIN 0.7 % (0-1.5); PCO2 70 mm Hg (35-45); PO2 51 mm Hg (80-100); pH 7.36 (7.35-7.45)
[2017-10-19] MEDS ORDERED: COREG6.25 M1 PO (09:56)
[2017-10-19 11:24] VITALS: BP 80/37
[2017-10-19 16:39] VITALS: BP 139/65
[2017-10-19 19:59] VITALS: BP 110/64
[2017-10-19 23:04] VITALS: BP 110/64
[2017-10-20 06:22] LABS: HEMATOCRIT 31.1 % (38.0-50.0); HEMOGLOBIN 9.7 G/DL (12.5-16.6); MCHC 31.2 G/DL (30.0-36.0); MCV 96.3 FL (86-99); PLATELET COUNT 111 K/uL (156-360); RBC DIS.WIDTH-CV 12.9 % (11.8-14.6); RBC DIS.WIDTH-SD 45.6 % (39-53); RED BLOOD COUNT 3.23 M/uL (4.00-5.50); WHITE BLOOD COUNT 5.6 K/uL (4.1-10.2)
[2017-10-20 06:44] LABS: CHLORIDE 93 MEQ/L (99-109); GFR ESTIMATE (CALCULATED) 14 mL/min/ (58.99-99999); GLUCOSE 189 mg/dL (70-99); SODIUM 139 MEQ/L (136-147); UREA NITROGEN (BUN) 28 mg/dL (9-23)
[2017-10-20 06:49] LABS: CREATININE 4.3 MG/DL (0.6-1.3)
[2017-10-20 08:27] VITALS: BP 135/63
[2017-10-20] MEDS ORDERED: MORPHINE CON20 MG/M1 PO (09:34)
[2017-10-20] MEDS ORDERED: ATIVAN1 MG PO (09:34)
[2017-10-20] MEDS ORDERED: LEVSIN0.125 MG PO (09:34)
== END 2017-10-20 13:10 | disposition hospice, home (50) | DRG 189 ==
LOC: EME → EDBD 05:13 → EME 05:13 → 5EAST 09:00 → EDOF 09:00 → ENRESERV 09:24 → 5EAST 11:21 → ENPENDDIS 10-20 → 5EAST 10-20 13:10
PROVIDERS: Emergency Medicine; Internal Medicine
PROC: 0BPQX0Z Removal of Drainage Device from Pleura, External Approach (ICD-10-PCS; principal; 2017-10-19)
DX: J96.22 Acute and chronic respiratory failure with hypercapnia (principal); I50.23 Acute on chronic systolic (congestive) heart failure; J18.9 Pneumonia, unspecified organism; E11.65 Type 2 diabetes mellitus with hyperglycemia; N18.6 End stage renal disease; I13.2 Hypertensive heart and chronic kidney disease with heart failure and with stage 5 chronic kidney disease, or end stage renal disease; D69.6 Thrombocytopenia, unspecified; E11.22 Type 2 diabetes mellitus with diabetic chronic kidney disease; J44.9 Chronic obstructive pulmonary disease, unspecified; I95.3 Hypotension of hemodialysis; R29.6 Repeated falls; E66.01 Morbid (severe) obesity due to excess calories; I25.5 Ischemic cardiomyopathy; N25.81 Secondary hyperparathyroidism of renal origin; Z96.653 Presence of artificial knee joint, bilateral; I27.20 Pulmonary hypertension, unspecified; D50.9 Iron deficiency anemia, unspecified; D64.9 Anemia, unspecified; D63.1 Anemia in chronic kidney disease; Z66 Do not resuscitate; Z51.5 Encounter for palliative care; I25.10 Atherosclerotic heart disease of native coronary artery without angina pectoris; J96.21 Acute and chronic respiratory failure with hypoxia; F32.9 Major depressive disorder, single episode, unspecified; Z87.891 Personal history of nicotine dependence; Z99.2 Dependence on renal dialysis; Z79.4 Long term (current) use of insulin; Z95.1 Presence of aortocoronary bypass graft; Z90.5 Acquired absence of kidney; Z90.49 Acquired absence of other specified parts of digestive tract; Z95.5 Presence of coronary angioplasty implant and graft; Z99.81 Dependence on supplemental oxygen; Z79.899 Other long term (current) drug therapy; Y95 Nosocomial condition; I87.8 Other specified disorders of veins
CPT/HCPCS: 32552; 36600; 71045; 80048; 81003; 82010; 82803; 82948; 84484; 85027; 85610; 85730; 87040; 87086; 93005; 94640; 94660; 94799; 99281; 99284; J0696; J1644; J1815; J2543; J3370; J7050